=== PATIENT | male | born 1935 | race Caucasian/White ===

== ENCOUNTER 2017-08-05 09:34 | Outpatient (CLI) | payer MEDICARE, BC ==
--- NOTE | 2017-08-05 13:04 | RAD ---
PA AND LATERAL CHEST X-RAY: 08/05/2017 HISTORY: Dyspnea. COMPARISON: 10/23/2016 FINDINGS: Again noted is elevation of the left hemidiaphragm with atelectasis at the left lung base. There al so appears to be atelectasis at the right lung base. The cardiac silhouette is stable in size but i s partially obscured to an elevated left hemidiaphragm and shallow depth of inspiration. Vascular c alcification is again seen in the thoracic aorta. Midline sternotomy wires are again seen. Left gl enohumeral prosthesis is again seen. No other interval change. IMPRESSION: Overall stable chest with bibasilar atelectasis and elevation of left hemidiaphragm. POS: [facility]
== END 2017-08-05 09:35 | disposition home or self-care (01) ==
LOC: RAD 09:34
PROVIDERS: ATTEND Internal Medicine Critical Care Medicine
DX: R06.00 Dyspnea, unspecified (principal); J98.11 Atelectasis
CPT/HCPCS: 71020

== ENCOUNTER 2017-11-08 10:03 | Inpatient (IN) | payer MEDICARE, BC ==
[2017-11-08 11:22] LABS: #Basophils 0.1 thou/uL (0.0-0.2); #Eosinphils 0.1 thou/uL (0.0-0.7); #Lymphocytes 0.8 thou/uL (1.20-3.40); #Monocytes 0.5 thou/uL (0.11-0.59); #Neutrophils 8.8 thou/uL (1.40-6.50); %Basophils 1.3 % (0.0-1.0); %Eosinophils 1.3 % (0.0-10.0); %Monocytes 4.8 % (0.0-10.0); %Neutrophils 84.6 % (42.0-75.0); Hemoglobin 15.3 g/dL (14.0-18.0); Mean Corpuscular HGB CONC 31.3 g/dL (32.0-36.0); Mean Corpuscular Hemoglobin 30.5 pg (27.0-31.0); Mean Corpuscular Volume 97.6 fl (80.0-94.0); Mean Platelet Volume 8.5 fL (7.4-10.4); Platelet Count 147 thou/uL (130-400); RBC Distribution Width 14.4 % (11.5-14.5); Red Blood Cell (RBC) Count 5.02 mill/uL (4.70-6.10); White Blood Cell (WBC) Count 10.4 thou/uL (4.8-10.8)
--- NOTE | 2017-11-08 11:22 | RAD ---
CHEST TWO VIEWS: History: Dyspnea. Comparison: 08-05-17 FINDINGS: Cardiomediastinal silhouette is partially obscured by patchy bibasilar infiltrates that are similar i n appearance to the prior exam. Left hemidiaphragm remains elevated. Pulmonary vasculature remain eng orged. Mediastinum is midline with aortic calcification and post-operative changes. No lobar consolid ation or pneumothorax are visible. Left shoulder prosthesis and degenerative changes of the right mary grace ulder are apparent. IMPRESSION: Pulmonary vascular congestion, bibasilar atelectasis, and other findings are stable. POS: [facility]
[2017-11-08 11:31] LABS: Anion Gap 14 mmol/L (10-20); BUN (Urea Nitrogen) 25 mg/dL (8.4-25.7); CRP (Inflammatory) 9.39 mg/dL (= or < 0.5); Calc. Creatinine Clearance 0 mL/min (70-130); Calcium 9.8 mg/dL (7.8-10.44); Carbon Dioxide 31 mmol/L (23-31); Chloride 101 mmol/L (98-107); Estimated GFR-MDRD 59; Glucose 133 mg/dL (83-110); Potassium 3.8 mmol/L (3.5-5.1); Sodium 142 mmol/L (136-145); Uric Acid 3.9 mg/dL (3.5-7.2)
[2017-11-08 11:35] LABS: CKMB 2.2 ng/mL (0-6.6); Troponin I 0.052 ng/mL (< 0.028)
--- NOTE | 2017-11-08 12:13 | RAD ---
RIGHT HAND 3 VIEWS: Date: 11/08/17 HISTORY: Right hand pain. FINDINGS: There is lateral subluxation at the first carpometacarpal joint with complete loss of joint space, pr ominent osteophytosis, and subchondral sclerosis. Heterotopic ossification is also present with destr uction of the articular surface of the trapezium. At the distal interphalangeal joint of the index finger, chronic appearing cortical destruction is ap parent with abundant osteophytosis and moderate degree of heterotopic ossification. There is complete loss of joint space and subchondral sclerosis. Less severe osteoarthritic changes involve the other distal interphalangeal joints. Old ununited ossi fic avulsion of the ulnar styloid is apparent. There is calcification in the arterial structures. Sma ll ossification just lateral to the base of the proximal phalanx index finger may represent an old os sific avulsion of a tendon. IMPRESSION: 1. 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 2. Atherosclerosis. POS: [facility]
--- NOTE | 2017-11-08 12:28 | RAD ---
4 VIEWS RIGHT ELBOW: Date: 11/08/17 HISTORY: Right elbow pain which began 5 days ago. COMPARISON: None available. FINDINGS: There are cortical osseous densities seen adjacent to the lateral humeral condyle, as well as adjacen t to the radial head, likely related to prior injury. There are degenerative changes seen at the elbo w with narrowing of the joint space. No obvious fracture is appreciated and there is no dislocation i dentified. There is subcutaneous soft tissue swelling about the elbow, greater medially and posterior ly. There is question of elevation of the posterior fat pad which may represent a small joint effusio n. The anterior fat pad is not elevated. Vascular calcifications are seen in the volar aspect of the forearm. IMPRESSION: 1. Prominent degenerative changes involving the elbow with suggestion of prior injury at the lateral aspect of the elbow. However, no acute fracture or dislocation is seen. 2. Subcutaneous soft tissue swelling right elbow predominantly medially and posteriorly. There is qu estion of a small joint effusion as well. POS: [facility]
[2017-11-08] MEDS ORDERED: Nitroglycerin 2% Ointment 1 INCH/1 GM Packet ONE (13:07)
[2017-11-08 15:04] LABS: Troponin I 0.061 ng/mL (< 0.028)
[2017-11-08] MEDS ORDERED: Calcium Carbonate 500 MG ChewTAB PO PRN (15:09)
[2017-11-08] MEDS ORDERED: HYDROcodone/Acetaminophen 5/325 mg Tablet PO PRN (15:09)
[2017-11-08] MEDS ORDERED: Acetaminophen 325 MG TAB PO PRN (15:09)
[2017-11-08 15:49] VITALS: BMI 29.7
[2017-11-08] MEDS ORDERED: Enoxaparin Sodium 40 MG/0.4 ML SYRINGE SC SCH (16:00)
[2017-11-08] MEDS ORDERED: Metoprolol Tartrate 50 MG TAB PO SCH (18:15)
[2017-11-08] MEDS ORDERED: Colchicine 0.3 MG TAB PO SCH (18:30)
[2017-11-08] MEDS: Atorvastatin Calcium 10 MG TAB PO SCH (20:37)
[2017-11-08] MEDS: Colchicine 0.6 MG TAB PO SCH (20:37)
[2017-11-08] MEDS: Naproxen 500 MG TAB PO SCH (20:38)
[2017-11-08] MEDS: Docusate 100 MG CAP PO SCH (20:38)
[2017-11-08] MEDS: Famotidine/PF 20 mg/2ml Vial SLOW IVP SCH (20:40)
[2017-11-08 23:31] LABS: CKMB 1.6 ng/mL (0-6.6)
[2017-11-09 05:25] LABS: #Eosinphils 0.3 thou/uL (0.0-0.7); #Lymphocytes 1.2 thou/uL (1.20-3.40); #Monocytes 0.7 thou/uL (0.11-0.59); #Neutrophils 4.8 thou/uL (1.40-6.50); %Basophils 0.7 % (0.0-1.0); %Eosinophils 3.7 % (0.0-10.0); %Lymphocytes 17.3 % (21.0-51.0); %Monocytes 10.6 % (0.0-10.0); %Neutrophils 67.8 % (42.0-75.0); Mean Corpuscular Hemoglobin 30.9 pg (27.0-31.0); Mean Corpuscular Volume 99.7 fl (80.0-94.0); Platelet Count 146 thou/uL (130-400); RBC Distribution Width 13.9 % (11.5-14.5); Red Blood Cell (RBC) Count 4.52 mill/uL (4.70-6.10)
[2017-11-09 05:46] LABS: Anion Gap 12 mmol/L (10-20); BUN (Urea Nitrogen) 27 mg/dL (8.4-25.7); Calc. Creatinine Clearance 61 mL/min (70-130); Carbon Dioxide 27 mmol/L (23-31); Chloride 104 mmol/L (98-107); Estimated GFR-MDRD 64; Glucose 93 mg/dL (83-110); Magnesium 1.9 mg/dL (1.6-2.6); Potassium 3.9 mmol/L (3.5-5.1); Sodium 139 mmol/L (136-145)
[2017-11-09] MEDS: Levothyroxine Sodium 112 MCG TAB PO SCH (06:25)
[2017-11-09 07:47] LABS: CKMB 1.7 ng/mL (0-6.6); Troponin I 0.056 ng/mL (< 0.028)
[2017-11-09] MEDS: Colchicine 0.6 MG TAB PO SCH ×2 (08:41→20:48)
[2017-11-09] MEDS: Naproxen 500 MG TAB PO SCH ×2 (08:41→20:48)
[2017-11-09] MEDS: Hydrochlorothiazide 25 MG TAB PO SCH (08:42)
[2017-11-09] MEDS: Losartan 25 MG TAB PO SCH (08:42)
[2017-11-09] MEDS: Famotidine/PF 20 mg/2ml Vial SLOW IVP SCH ×2 (08:43→20:49)
[2017-11-09] MEDS: Metoprolol Tartrate 25 MG TAB PO SCH ×2 (08:43→20:48)
[2017-11-09] MEDS: Docusate 100 MG CAP PO SCH ×2 (08:43→20:48)
[2017-11-09] MEDS ORDERED: Allopurinol 300 MG TAB PO SCH (09:00)
[2017-11-09] MEDS ORDERED: Enoxaparin Sodium 40 MG/0.4 ML SYRINGE SC SCH (09:00)
--- NOTE | 2017-11-09 10:37 | CT ---
CT ARTERIOGRAM CHEST WITH IV CONTRAST AND 3D MIP IMAGING: HISTORY: Chest pain. Dyspnea. FINDINGS: There is good contrast opacification of the pulmonary arteries. Contrast has not yet reached the aor ta at the time of imaging. There is calcification in the arterial structures. Atelectasis is presen t at each lung base. There are postoperative changes in the mediastinum. IMPRESSION: 1. No CT evidence of pulmonary embolus. 2. Bibasilar atelectasis with postoperative changes of the mediastinum. 3. Atherosclerosis. Findings were called to Dr. Bae at 1008 hours. CODE CR POS: [facility]
[2017-11-09] MEDS ORDERED: Dronedarone HCl 400 MG TAB PO SCH (12:15)
--- NOTE | 2017-11-09 12:20 | PDOC.PN ---
- Subjective Encounter Start Date: 11/09/17 Encounter Start Time: 09:30 Afebrile, breathing is beter, much less pain to right elbow and hand. no n/V/D/C, no CP, SOB much improved review of telemtry revealed underlying atrial flutter with variable block, i have asked Dr Myers to see. Case discussed face to face with Dr Bishop, will get CT angio to r/o PE given new atrial arrhythmia 10 point ROS performed and neg for all systems except as per HPI - Objective MAR Reviewed: Yes Vital Signs & Weight: Vital Signs (12 hours) Temp Pulse Resp BP BP Pulse Ox 11/09/17 10:44 97.7 F 83 16 117/68 94 L 11/09/17 08:00 97.0 F L 94 20 11/09/17 07:45 97.0 F L 94 20 124/81 97 11/09/17 04:21 97.7 F 81 18 117/84 93 L Weight Weight 190 lb I&O: 11/08/17 11/09/17 11/10/17 06:59 06:59 06:59 Intake Total 1220 240 Balance 1220 240 Result Diagrams: 11/09/17 04:37 11/09/17 04:37 Radiology Reviewed by me: Yes EKG Reviewed by me: Yes Phys Exam - Physical Examination Constitutional: NAD HEENT: PERRLA, moist MMs, sclera anicteric, oral pharynx no lesions Neck: no nodes, no JVD, supple, full ROM Respiratory: no wheezing, no rhonchi, clear to auscultation bilateral bibasilar rales stable Cardiovascular: no significant murmur, no rub irregularly irregular, slightly tachy Gastrointestinal: soft, non-tender, positive bowel sounds Musculoskeletal: no edema, pulses present, edema present Neurological: non-focal, normal sensation, moves all 4 limbs Lymphatic: no nodes Psychiatric: normal affect, A&O x 3 Skin: no rash, normal turgor, cap refill <2 seconds Deviation from normal: redness and swelling to right elbow and hand much better Dx/Plan (1) Atrial flutter by electrocardiogram Code(s): I48.92 - UNSPECIFIED ATRIAL FLUTTER Status: Acute (2) Gout attack Code(s): M10.9 - GOUT, UNSPECIFIED Status: Acute Qualifiers: Gout site: elbow Gout etiology: idiopathic Laterality: right Qualified Code(s): M10.021 - Idiopathic gout, right elbow (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 transplanted heart: [place] heart Associated angina: without angina Qualified Code(s): I25.10 - Atherosclerotic heart disease of [place] coronary artery without angina pectoris (5) Demand ischemia Code(s): I24.8 - OTHER FORMS OF ACUTE ISCHEMIC HEART DISEASE Status: Acute (6) Hypothyroid Code(s): E03.9 - HYPOTHYROIDISM, UNSPECIFIED Status: Chronic Qualifiers: Hypothyroidism type: acquired Qualified Code(s): E03.9 - Hypothyroidism, unspecified - Plan cont current plan of care, respiratory therapy, out of bed/ambulate * . seen by jesus: bossman now. CAMELIA and [facility] on saturday, change to inpatient
--- NOTE | 2017-11-09 16:53 | CON ---
DATE OF CONSULTATION: 11/09/2017 CARDIOLOGY CONSULTATION REASON FOR CONSULTATION: Atrial fibrillation/atrial flutter. HISTORY OF PRESENT ILLNESS: Mr. Patel is a very pleasant 82-year-old white gentleman, patient of Dr. Meka Thompson who comes to the hospital for arm pain. He has what appears to be gouty flare on h is right arm and is complaining of pain due to this. He also has chronic shortness of breath. He wa s seen in the ER and was found to be in what was thought to be atrial fibrillation and RVR, heart rat e in 100s and 150s. He was started on a Cardizem drip and admitted for this. Cardiology is being co nsulted for this. He does have a history of coronary artery disease and diastolic heart failure, but he has never been diagnosed with atrial fibrillation or atrial flutter. He had a bypass in [address] Thompson did repeat heart catheterization last year in the middle of year for ongoing worsening shor tness of breath and this showed that he had widely patent grafts and alternative causes for the short ness of breath were sought. He has seen Dr. Bishop as well. He tells me that his shortness of breath is unchanged right now. PAST MEDICAL HISTORY: 1. Hyperlipidemia. 2. Hypertension. 3. Coronary artery disease as above. 4. Gout. 5. Diverticulosis. 6. Hypothyroidism. 7. History of acute bronchitis and pneumonias in the past. PAST SURGICAL HISTORY: 1. Colon resection. 2. Bilateral knee replacements. 3. Hernia repair. 4. Appendectomy. 5. CABG x3 in 2004. 6. Left shoulder surgery in 2009. FAMILY HISTORY: Brother had PR and bypass in early age. SOCIAL HISTORY: Used to chew tobacco. No alcohol or drugs. REVIEW OF SYSTEMS: A 12-point review of systems was done and is all negative unless stated in the his tory of present illness. OUTPATIENT MEDICATIONS: Include, 1. Aleve p.r.n. 2. Pravastatin 80 mg a day. 3. Levothyroxine 112 mcg a day. 4. Allopurinol 300 mg daily. 5. Vitamin D3. 6. Aspirin 81 daily. 7. Metoprolol succinate 50 mg daily. 8. Hydrochlorothiazide 12.5 mg daily. 9. Cozaar 50 mg twice a day. ALLERGIES: No known drug allergies. PHYSICAL EXAMINATION: VITAL SIGNS: Temperature 97.7, pulse 83, respiratory rate 16, satting 94% on room air, blood pressur e 117/68. GENERAL: Awake, alert, oriented x3, in no distress. HEENT: Normocephalic, atraumatic. NECK: Supple. LUNGS: Clear. CARDIOVASCULAR: Irregularly irregular. Heart rate in 90s-110s. Grade 2/6 systolic murmur in the ri ght upper sternal border. ABDOMEN: Soft and positive bowel sounds. EXTREMITIES: Trace edema. SKIN: Warm and dry. LABORATORY DATA AND IMAGING DATA: Laboratory work was reviewed. CMP is unremarkable except for gluc ose of 133. Troponin has been in indeterminate range at 0.05, 0.06, 0.08, and 0.05. BNP was 170. C oags and D-dimer is little bit high and CBC was unremarkable. CTA of the chest to rule out PE was ne gative for pulmonary embolus, bibasilar atelectases, postoperative mediastinal changes and atheroscle rosis. Heart catheterization done in November of last year showed patent vein to first diagonal, patent vein to the first OM, and a patent FLANNERY to the LAD. ASSESSMENT AND PLAN: Atrial flutter: Looking at the tracing, this is more consistent with atrial fl utter with variable block now. We will plan on doing a CAMELIA cardioversion on Saturday. We will start M ultaq today and full anticoagulation with Eliquis at [address] Thompson will follow up on Saturday. She may want to consult EP and possibly just get him set up for an ablation. We will leave this up to her at that point. Thank you for letting us to participate in the care of your patient. We will follow.
[2017-11-09] MEDS ORDERED: ISOVUE-370 76%-LOCM 1 ML ONE (16:54)
--- NOTE | 2017-11-09 16:55 | PRG ---
DATE OF SERVICE: 11/09/2017 SUBJECTIVE: Mr. Patel presented yesterday with complaints of elbow pain. He subsequently was admitt ed. His shortness of breath is about the same. Says his arm and elbow been bothering him for 3 days . Says he is 100% better today. OBJECTIVE: VITAL SIGNS: He initially had a resting tachycardia. It turns out that this may be atrial flutter. He had a CT angiogram today that showed no thromboembolic disease, no change from his last CT. I am following him for chronic dyspnea. He has bilateral elevated hemidiaphragms, he has a mild incr ease in interstitial markings with a decreased effusion and a restrictive pattern on PFTs. This has not been rapidly progressive. Deconditioning plays a significant role in his dyspnea. In my opinion , I do not feel he has neuromuscular disease. LUNGS: Still remarkable for fine crackles at his bases. CARDIOVASCULAR: Regular rhythm. ABDOMEN: Soft. LABORATORY DATA: White count 7, hemoglobin 14 and platelets 146. Sodium 139, potassium 3.9, chloride 104, bicarb 27, BUN 27 and creatinine 1.1. IMPRESSION AND PLAN: 1. Multifactorial dyspnea, stable. 2. Elbow swelling with pain ? gout, clinically better. It is unclear to me whether or not he receiv ed steroids in the [place] ER. I will be happy to follow him along while he is in the hospital.
--- NOTE | 2017-11-09 18:07 | HP ---
DATE OF ADMISSION: 11/08/2017 TIME OF SERVICE: 1700 hours. PRIMARY CARE PHYSICIAN: Tutu Hdz MD PRIMARY BLUING OVEN TENDER: Meka Thompson MD PRIMARY GAMING MANAGER: Jatinder Bishop MD CONSULTING BLUING OVEN TENDER: Colt Myers MD CHIEF COMPLAINT: Right arm pain. HISTORY OF PRESENT ILLNESS: Mr. Patel is a pleasant 82-year-old white male with multiple medical pro blems, who presented to an outside emergency department, [facility] ER, on the day of admi ssion with complaints of arm pain. He has been having arm pain initially in the right elbow associated with some redness and inflammatio n that seemed to migrate to the right wrist and has had symptoms for the last 5 days. It was at its worst about 24-36 hours in and had slowly subsided since then. He denies any trauma or injury to the area. 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 In the emergency department, he was found to have some inflammation and some mild swelling on radiogr aphs. Evaluation there also showed him to be tachycardic with a heart rate in the 100-128 range. EK G was read as atrial fibrillation per the ER physician. Labs showed the troponin minimally elevated at 0.05, remainder of his labs looked fairly normal and w e were subsequently called for admission for workup for chest pain. The patient had no real chest pain. He had no shortness of breath. No nausea, vomiting, or diaphore sis. No sweats. The patient was transferred to our hospital. I saw him on arrival. At that point, he was feeling mu ch better, but still remains somewhat tachycardic. PAST MEDICAL HISTORY: 1. Gout, usually in the feet. 2. Hypothyroidism. 3. History of renal stones. 4. Diverticulosis. 5. Coronary artery disease. 6. Hyperlipidemia, primary cholesterol. 7. Hypertension. 8. Diaphragmatic weakness. 9. Chronic shortness of breath with multiple workups by Dr. Thompson and Dr. Bishop. PAST SURGICAL HISTORY: 1. Colon resection for colon cancer. 2. Appendectomy. 3. Hernia repair. 4. Bilateral knee replacement. 5. Left shoulder surgery. 6. CABG x3 vessels, 2004. 7. Stress test in 11/2016, negative per Dr. Thompson' note. 8. Percutaneous transluminal coronary angiography in 11/2016 that showed all 3 bypass grafts patent with minimal disease and distal vessels to be minimally diseased as well. HOME MEDICATIONS: 1. Aspirin 81 mg daily. 2. Levothyroxine 112 mcg daily. 3. Aleve as needed. 4. Allopurinol 300 mg daily. 5. HCTZ 12.5 mg daily. 6. Losartan 50 mg daily. 7. Metoprolol succinate 50 mg p.o. daily. 8. Protonix 40 mg p.o. at bedtime. 9. Vitamin D3, 2000 units daily. 10. Albuterol MDI as needed. ALLERGIES: NKDA. FAMILY HISTORY: Negative for clotting or bleeding disorder. No immune dysfunction. No history of b lood tumors. SOCIAL HISTORY: Negative for habits x3. He is and accompanies him. Son is present and grandson works in cardiopulmonary imaging here at [place]. REVIEW OF SYSTEMS: 10-point review of systems was performed, negative for all other systems except a s noted per HPI. PHYSICAL EXAMINATION: VITAL SIGNS: Temperature current 97.7, pulse 103, blood pressure is 133/71, respiratory rate 18, sat ting 93% on room air. GENERAL: He is awake. He is alert. He is oriented x3. He is a well-developed, well-nourished, whi te male who appears to be in no distress. HEENT: Normocephalic, atraumatic. Pupils equal, round, and reactive to light bilaterally. Mucous m embranes are moist. There are no visible lesions. No thrush. NECK: Supple. There is no lymphadenopathy, no JVD, no thyromegaly. He has normal carotid upstrokes . I do not appreciate bruits. LUNGS: Clear anteriorly. Posteriorly, he has adequate air movement. He has bibasilar crackles that do not clear with deep inspiration. He has breath sounds only about usp down to his back. Ther e are no E to A changes, no dullness. CARDIOVASCULAR: He is tachycardic. He sounds regular most of the time with occasional irregular cosmo t. He has a faint 2/6 systolic ejection murmur, best heard over the right upper sternal border. It did not radiate to the apex or the carotids. ABDOMEN: Soft. It is nontender and nondistended. He has no masses, no organomegaly. He has no manuela ound, rigidity or guarding with good bowel sounds. EXTREMITIES: No cyanosis, no clubbing with trace pedal edema. He has thready dorsalis pedis and pos terior tibial pulses. He does have redness and inflammation around the olecranon bursa area and in t he right wrist at the carpometacarpal joint, mostly in the hypothenar aspect. There is slight rednes s, heat, and pain with light touch and movement. SKIN: Otherwise, warm, moist, and well perfused. He has no other rashes or lesions. NEUROLOGIC: Cranial nerves II-XII are grossly intact. He has 5/5 strength. He has no focal deficit s. Normal speech pattern. MUSCULOSKELETAL: Normal to inspection. There is no joint inflammation and no palpable effusions. LABORATORY DATA: Sodium 142, potassium 3.8, chloride 101, bicarb 31, BUN 25, creatinine 1.17, glucos e 133, calcium 9.8. Liver function is normal. CBC showed a white count of 10.4, hemoglobin 15.3, hematocrit 49, platelet count 147,000. ESR of 56. CRP of 9.39. Uric acid level was 3.9. CK-MB was 2.2. Troponin I is 0.052. Fasting lipid profile done in the [facility] department was normal and BNP was minimally elevated at 170.4. No chest imaging. ASSESSMENT AND PLAN: 1. 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 We will stop his allopurinol that c an exacerbate. We will start him on colchicine 0.6 b.i.d. for the next several days. Uric acid leve l was normal, but symptoms right now are improved from what they were few days ago. It may be on [employer] swing anyways. 2. Atrial flutter. On view of his EKG from the emergency department, he had a very irregular rhythm at 130. It is slightly slower than I would expect for an atrial flutter with a 2:1 block; however, we will watch him on the monitor overnight and re-evaluate. We will get serial cardiac biomarkers an d start him on metoprolol tartrate 50 mg b.i.d. and hold Toprol-XL assuming his rate is better contro lled. 3. Hypothyroidism, on levothyroxine. We will continue. TSH is elevated. 4. History of renal stones. No current symptoms. 5. History of diverticulosis, no current symptoms. 6. History of coronary artery disease. The patient denies any chest pain. We will again obtain ser ial cardiac biomarkers and may adjust based on the results. 7. Hyperlipidemia, primary cholesterol. 8. Hypertension, on losartan/HCTZ and metoprolol succinate. We will continue his losartan/HCTZ, and change him to metoprolol tartrate for right now. 9. Gastroesophageal reflux disease, on Protonix. We will continue. 10. History of occasional reactive airway disease, on albuterol. We will use DuoNeb as needed. We will ask Cardiology to evaluate in the morning. If the troponins trend up or if any arrhythmias n oted, we will notify Dr. Thompson and Dr. Bishop of admission.
[2017-11-09] MEDS: Dronedarone HCl 400 MG TAB PO SCH (18:42)
[2017-11-09] MEDS ORDERED: Sodium Chloride 0.9% 10 ML ONE (20:18)
[2017-11-09] MEDS: Apixaban 5 MG TAB PO SCH (20:48)
[2017-11-09] MEDS: Atorvastatin Calcium 10 MG TAB PO SCH (20:48)
[2017-11-09 23:00] LABS: Hemoglobin 13.5 g/dL (14.0-18.0); Platelet Count 151 thou/uL (130-400)
[2017-11-10] MEDS: Levothyroxine Sodium 112 MCG TAB PO SCH (05:35)
[2017-11-10 05:46] LABS: Platelet Count 142 thou/uL (130-400)
[2017-11-10 05:47] LABS: #Basophils 0.1 thou/uL (0.0-0.2); #Eosinphils 0.3 thou/uL (0.0-0.7); #Lymphocytes 0.9 thou/uL (1.20-3.40); #Monocytes 0.7 thou/uL (0.11-0.59); #Neutrophils 3.9 thou/uL (1.40-6.50); %Basophils 0.9 % (0.0-1.0); %Eosinophils 4.5 % (0.0-10.0); %Lymphocytes 15.8 % (21.0-51.0); %Monocytes 11.9 % (0.0-10.0); %Neutrophils 66.9 % (42.0-75.0); Hemoglobin 13.7 g/dL (14.0-18.0); Mean Corpuscular HGB CONC 30.9 g/dL (32.0-36.0); Mean Corpuscular Hemoglobin 30.8 pg (27.0-31.0); Mean Corpuscular Volume 99.7 fl (80.0-94.0); Mean Platelet Volume 8.7 fL (7.4-10.4); Platelet Count 137 thou/uL (130-400); RBC Distribution Width 13.8 % (11.5-14.5); Red Blood Cell (RBC) Count 4.47 mill/uL (4.70-6.10); White Blood Cell (WBC) Count 5.9 thou/uL (4.8-10.8)
[2017-11-10 05:52] LABS: Hemoglobin 13.8 g/dL (14.0-18.0)
[2017-11-10 05:55] LABS: Anion Gap 14 mmol/L (10-20); BUN (Urea Nitrogen) 31 mg/dL (8.4-25.7); Calc. Creatinine Clearance 56 mL/min (70-130); Calcium 8.6 mg/dL (7.8-10.44); Carbon Dioxide 24 mmol/L (23-31); Chloride 107 mmol/L (98-107); Estimated GFR-MDRD 58; Glucose 103 mg/dL (83-110); Sodium 141 mmol/L (136-145)
[2017-11-10] MEDS: Hydrochlorothiazide 25 MG TAB PO SCH (08:43)
[2017-11-10] MEDS: Naproxen 500 MG TAB PO SCH ×2 (08:43→21:19)
[2017-11-10] MEDS: Losartan 25 MG TAB PO SCH (08:43)
[2017-11-10] MEDS: Metoprolol Tartrate 25 MG TAB PO SCH ×2 (08:44→21:19)
[2017-11-10] MEDS: Dronedarone HCl 400 MG TAB PO SCH ×2 (08:44→16:46)
[2017-11-10] MEDS: Apixaban 5 MG TAB PO SCH ×2 (08:44→21:19)
[2017-11-10] MEDS: Colchicine 0.6 MG TAB PO SCH ×2 (08:44→21:23)
[2017-11-10] MEDS: Docusate 100 MG CAP PO SCH ×2 (08:44→21:19)
[2017-11-10] MEDS: Famotidine/PF 20 mg/2ml Vial SLOW IVP SCH (08:50)
--- NOTE | 2017-11-10 11:11 | PDOC.PN ---
- Subjective Encounter Start Date: 11/10/17 Encounter Start Time: 09:30 Pt heart rate down to normal. breathing is improved. No further tachycardia. Still in aflutter with variable block. No CP or SOB above basline, no n/V/D/C, no F/C, no cough 10 point ROS performed and neg for all systems except as per HPI - Objective MAR Reviewed: Yes Vital Signs & Weight: Vital Signs (12 hours) Temp Pulse Resp BP Pulse Ox 11/10/17 08:56 98.4 F 75 18 129/60 98 11/10/17 08:00 98.3 F 75 15 98 11/10/17 04:00 98.3 F 75 15 103/51 L 97 Weight Weight 190 lb 11.198 oz I&O: 11/09/17 11/10/17 11/11/17 06:59 06:59 06:59 Intake Total 492 240 Output Total 350 Balance 142 240 Result Diagrams: 11/10/17 05:35 11/10/17 05:35 EKG Reviewed by me: Yes Phys Exam - Physical Examination Constitutional: NAD HEENT: PERRLA, moist MMs, sclera anicteric, oral pharynx no lesions Neck: no nodes, no JVD, supple, full ROM Respiratory: no wheezing, no rales, no rhonchi, clear to auscultation bilateral Cardiovascular: no significant murmur, irregular Gastrointestinal: soft, non-tender, no distention, positive bowel sounds Musculoskeletal: no edema, pulses present Neurological: non-focal, normal sensation, moves all 4 limbs Lymphatic: no nodes Psychiatric: normal affect, A&O x 3 Skin: no rash, normal turgor, cap refill <2 seconds Dx/Plan (1) Atrial flutter by electrocardiogram Code(s): I48.92 - UNSPECIFIED ATRIAL FLUTTER Status: Acute Comment: kaiden Oscar. cardioversion possible tomorrow, Dr Thompson to assume care (2) Gout attack Code(s): M10.9 - GOUT, UNSPECIFIED Status: Acute Qualifiers: Gout site: elbow Gout etiology: idiopathic Laterality: right Qualified Code(s): M10.021 - Idiopathic gout, right elbow Comment: much better. 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 transplanted heart: [place] heart Associated angina: without angina Qualified Code(s): I25.10 - Atherosclerotic heart disease of [place] coronary artery without angina pectoris (5) Demand ischemia Code(s): I24.8 - OTHER FORMS OF ACUTE ISCHEMIC HEART DISEASE Status: Acute (6) Hypothyroid Code(s): E03.9 - HYPOTHYROIDISM, UNSPECIFIED Status: Chronic Qualifiers: Hypothyroidism type: acquired Qualified Code(s): E03.9 - Hypothyroidism, unspecified - Plan * .
--- NOTE | 2017-11-10 18:53 | PDOC.CTH ---
Cardiology Progress Note - Subjective He has noticed improvement in his SOB with rate control only. - Objective Vital Signs Temp Pulse Resp BP Pulse Ox 11/10/17 16:51 98.0 F 68 17 130/72 94 L 11/10/17 12:02 97.6 F 65 18 127/70 99 11/10/17 08:56 98.4 F 75 18 129/60 98 11/10/17 08:00 98.3 F 75 15 98 Weight 190 lb 11.198 oz 11/09/17 11/10/17 11/11/17 06:59 06:59 06:59 Intake Total 492 1080 Output Total 350 200 Balance 142 880 - Physical Examination General/Neuro: alert & oriented x3, NAD Neck: no JVD present Lungs: unlabored respirations Heart: other: (Irreg) Abdomen: NT/ND Extremities: other: (no edema) - Telemetry Telemetry Rhythm: Aflutter HR 80's. - Labs Result Diagrams: 11/10/17 05:35 11/10/17 05:35 Troponin/CKMB CK-MB (CK-2) 1.7 ng/mL (0-6.6) 11/09/17 06:55 Troponin I 0.056 ng/mL (< 0.028) H 11/09/17 06:55 - Assessment/Plan 1. Atrial flutter with variable block, rate controlled. 2. Chronic SOB. 3. CAD PLAN: - EP consultation tomorrow for possible ablation.
[2017-11-10] MEDS ORDERED: Sodium Chloride 0.9% 10 ML ONE (19:47)
--- NOTE | 2017-11-10 20:08 | PRG ---
DATE OF SERVICE: 11/10/2017 SUBJECTIVE: Mr. Patel has no complaints. OBJECTIVE: VITAL SIGNS: Heart rate is 68, afebrile, respiratory rate 17, oximetry is 94 on 2 liters, blood pres sure 132/72. LUNGS: Remarkable for chronic fine crackles at both bases. HEART: Regular rhythm. ABDOMEN: Soft. LABORATORY DATA: Hemoglobin is 13.8, platelets 142. Electrolytes, sodium 141, potassium 4, chloride 107, bicarbonate 24, BUN 31, creatinine 1.2. IMPRESSION: Dyspnea secondary to multiple factors. He said he ambulated today up and down the cabral, had less dyspnea in the current rhythm. I would like to believe that maybe he has been in and out o f these atrial arrhythmias leading to dyspnea on exertion. Hopefully, it is that simple, although it is unlikely to be that simple. There were no pulmonary issues at this time. He is tentatively to be evaluated by electrophysiologis t tomorrow.
[2017-11-10] MEDS: Atorvastatin Calcium 10 MG TAB PO SCH (21:19)
[2017-11-10] MEDS: Famotidine 20 MG TAB PO SCH (21:19)
[2017-11-11] MEDS ORDERED: Sodium Chloride 0.9% 10 ML ONE ×2 (04:01→14:15)
[2017-11-11] MEDS: Levothyroxine Sodium 112 MCG TAB PO SCH (05:59)
[2017-11-11] MEDS: Hydrochlorothiazide 25 MG TAB PO SCH (10:04)
[2017-11-11] MEDS: Losartan 25 MG TAB PO SCH (10:04)
[2017-11-11] MEDS: Naproxen 500 MG TAB PO SCH ×2 (10:05→20:23)
[2017-11-11] MEDS: Colchicine 0.6 MG TAB PO SCH ×2 (10:05→20:22)
[2017-11-11] MEDS: Metoprolol Tartrate 25 MG TAB PO SCH (10:05)
[2017-11-11] MEDS: Docusate 100 MG CAP PO SCH ×2 (10:05→20:24)
[2017-11-11] MEDS: Apixaban 5 MG TAB PO SCH ×2 (10:05→20:22)
[2017-11-11] MEDS: Famotidine 20 MG TAB PO SCH ×2 (10:06→20:23)
[2017-11-11] MEDS ORDERED: PROPOFOL 20 ML ONE (11:50)
[2017-11-11] MEDS ORDERED: PHENYLEPHRINE-NS 100 MCG/ML 10 ML SYRINGE ONE ×3 (12:01→15:41)
[2017-11-11] MEDS ORDERED: Phenylephrine 10 MG/NS 250 ML 250 ML ONE (12:30)
[2017-11-11] MEDS ORDERED: Norepinephrine 4 MG/4 ML VIAL ONE (12:38)
[2017-11-11] MEDS ORDERED: DOPamine 400 MG/D5W 250 ML 250 ML ONE (13:02)
[2017-11-11] MEDS ORDERED: Propofol 500 MG/50 ML VIAL ONE (13:25)
--- NOTE | 2017-11-11 13:50 | CON ---
DATE OF CONSULTATION: 11/11/2017 ELECTROPHYSIOLOGY CONSULTATION REFERRING PHYSICIAN: Dr. Bae and Dr. Myers. I am seeing Mr. Patel at our [facility] telemetry floor as an electrophysiology information technology consultant. His problems are: 1. Sustained atrial flutter. 2. Severe dyspnea. 3. Gout. 4. History of diverticulosis. 5. History of renal stones. 6. History of coronary artery disease with coronary artery bypass grafting surgery in 2005. A. Stress testing in 2017, negative, Dr. Martins's note. B. Repeat left heart catheterization for ongoing dyspnea noted. 7. Anticoagulation with Eliquis. 8. Coronary artery risk factors. A. Hypertension. B. Hyperlipidemia. 9. Prior history of diaphragmatic weakness. 10. History of hypothyroidism on replacement. ALLERGIES: None. MEDICATIONS: At home include aspirin, levothyroxine, Aleve, allopurinol, HCTZ, losartan, metoprolol succinate, Protonix, vitamin D3, albuterol. SUBJECTIVE: Mr. Patel was originally admitted for joint swelling, but he has also chronic history of dyspnea, which has been worked up in the past. He is very severely dyspneic now, more than usual. He has difficulty to ambulate around the house NYHA III functional status. He has no angina, though he denies chest pains. No fever, chills or cough. He has not passed out. He came to the ER with shoulder aches, which felt to be due to gouty arthritis and was started on colchicine and symptoms are improving now, but on the other hand , he was found to be atrial flutter and hence I was requested to evaluate. Currently, he is doing fair. His rate is controlled. No fever, chills or cough. No stroke-like symptoms. REVIEW OF SYSTEMS: Otherwise unremarkable. PAST MEDICAL HISTORY: As above. SOCIAL HISTORY: Patient denies smoking, ETOH or drug abuse. FAMILY HISTORY: Noncontributory. PHYSICAL EXAMINATION: VITAL SIGNS: The blood pressure is 130/82, heart rate 79, respirations 16, temperature 97.9 degrees Fahrenheit. GENERAL: Reveals an alert and oriented man, in no apparent distress. NECK: Supple. Jugular veins are not distended. CHEST: Coarse without crackles. CARDIAC: Heart sounds are irregularly irregular. S1 and S2 variable. No murmur or gallop. ABDOMEN: Benign. Bowel sounds positive. EXTREMITIES: Lower extremities without edema, clubbing or cyanosis. DATABASE: The telemetry strips and EKGs reviewed. EKG revealing an atrial flutter with 2:1 AV conduction. Atrial flutter appears to be typical in morphology based on subsequent rhythm strips on 11/08/2017. The atrial flutter now better controlled in rates. LABORATORY DATA: White blood cell count is 5.9, hemoglobin 13.7, platelet count is 137. D-dimer is 1.09. Sodium 141, potassium 4, BUN is 31, creatinine is 1.2. Troponin level was 0.06, 0.08 and 0.056 consecutively. ASSESSMENT AND PLAN: Mr. Patel is an 82-year-old man with prior history of chronic, but now worsening dyspnea, coronary artery disease which appears to be stable, who also has gouty arthritis, but also was found to be in sustained typical atrial flutter. They are rapid at times and is more dyspneic than usual with this. We discussed the potential etiology including cavotricuspid isthmus dependent flutter and described the procedure for him for an ablation. He understands the pros and cons about potentially eliminating this flutter circuit. Prior to that, he was not well anticoagulated. For this reason, we will proceed with CAMELIA. The risks, benefits of both CAMELIA and ablation procedure was detailed to the patient. He understands and willing to proceed. We will schedule him for the near date. Thank you again for allowing me to participate in the care of this patient. ROBEL
[2017-11-11] MEDS ORDERED: Acetaminophen 325 MG TAB ONE (14:55)
[2017-11-11] MEDS ORDERED: traMADol HCl 50 MG TAB PO PRN (15:11)
[2017-11-11] MEDS ORDERED: Mag-Al 1200 mg/1200 mg/30 ML UDCUP PO PRN (15:11)
[2017-11-11] MEDS ORDERED: Bisacodyl 5 MG TAB PO PRN (15:11)
[2017-11-11] MEDS ORDERED: Nitroglycerin 0.4 MG TAB (25 Tab Bottle) SL PRN (15:11)
[2017-11-11] MEDS ORDERED: Temazepam 15 MG CAP PO PRN (15:11)
[2017-11-11] MEDS ORDERED: Acetaminophen 325 MG TAB PO PRN (15:11)
[2017-11-11] MEDS ORDERED: diphenhydrAMINE 25 MG CAP PO PRN (15:11)
[2017-11-11] MEDS ORDERED: Silver Sulfadiazine 1% Cream 50 GM JAR TOP PRN (15:11)
[2017-11-11] MEDS ORDERED: Ondansetron HCl/PF 4 MG/2 ML Vial IVP PRN (15:11)
[2017-11-11] MEDS ORDERED: Bisacodyl 10 MG SUPP PR PRN (15:11)
[2017-11-11] MEDS ORDERED: ePHEDrine/0.9% NaCl/PF SYRINGE 50 mg/10 ml ONE (15:40)
[2017-11-11] MEDS ORDERED: PROPOFOL 200 MG/20 ML VIAL ONE (15:41)
--- NOTE | 2017-11-11 18:54 | PDOC.CTH ---
Cardiology Progress Note - Subjective Pt. without complaints. Doing well s/p ablation of atrial flutter. He is somewhat confused but otherwise alert. - Objective Vital Signs Temp Pulse Resp BP BP Pulse Ox 11/11/17 16:00 97.4 F L 63 18 123/81 11/11/17 10:15 97.9 F 79 16 95 11/11/17 08:00 97.9 F 79 16 113/82 Weight 184 lb 1.376 oz 11/10/17 11/11/17 11/12/17 06:59 06:59 06:59 Intake Total 492 1215 720 Output Total 350 400 Balance 142 815 720 - Physical Examination General/Neuro: alert & oriented x3 Lungs: CTA Heart: RRR Abdomen: NT/ND - Telemetry Telemetry Rhythm: NSR - Labs Result Diagrams: 11/10/17 05:35 11/10/17 05:35 Troponin/CKMB CK-MB (CK-2) 1.7 ng/mL (0-6.6) 11/09/17 06:55 Troponin I 0.056 ng/mL (< 0.028) H 11/09/17 06:55 - Assessment/Plan 1. Atrial flutter , now in NSR after ablation earlier today. 2. Chronic SOB. 3. CAD Review of Systems - Review of Systems EENTM: reports: no symptoms reported Respiratory: reports: no symptoms reported Cardiac (ROS): reports: no symptoms reported ABD/GI: reports: no symptoms reported Musculoskeletal: reports: no symptoms reported Neurological: reports: no symptoms reported
[2017-11-11] MEDS: Atorvastatin Calcium 10 MG TAB PO SCH (20:23)
--- NOTE | 2017-11-11 20:25 | CCLSPC ---
DATE OF SERVICE: 11/11/2017 ELECTROPHYSIOLOGY STUDY AND RADIOFREQUENCY ABLATION REPORT REFERRING PHYSICIAN: Colt Myers MD REASON FOR PROCEDURE: Mr. Patel is an 82-year-old man with history of severe dyspnea, presenting with sustained atrial flutter and prior to procedure demonstrating no intracardiac clots, but spontaneous ECHo contrast. The patient has been on apixaban up until yesterday, but not prior to the admission. PROCEDURE IN DETAIL: The patient received sedation by Anesthesia specialist. The right femoral venous area was prepped, draped, and anesthetized with subcutaneous lidocaine, and an 8-Nigerien short sheath x2 was introduced. Through this, a decapolar CS catheter was advanced to the coronary sinuses right ventricular and right atrial area and His bundle area. Pacing, mapping, and recording were performed in all locations. Following that, the ThermoCool SF catheter was advanced to the right atrium and right atrial map was performed. Following that, the pace mapping was performed during atrial flutter demonstrating the post-pacing interval equal the tachycardia cycle length at the cavotricuspid isthmus about 280 milliseconds. Cavotricuspid isthmus ablation was performed which eliminated the atrial flutter. Following that, during CS pacing, further ablation was performed to achieve CTI block with increase in the transisthmus time to 200 milliseconds. The transisthmus block was demonstrated using activation mapping during pacing from the prox CS demonstrating longest transisthmus times by the ablation line and somewhat shorter on lateral wall. Following that, dopamine was administered and the transisthmus time persisted. Baseline EP study was performed demonstrating status no retrograde conduction was seen at 700 milliseconds. The AV Wenckebach cycle length was 420 milliseconds. The baseline cycle length was 813 which increased to 2068 in sinus rhythm, QRS was 90 milliseconds, QT was 363 milliseconds. CONCLUSION: 1. Typical atrial flutter which was cavotricuspid isthmus dependent. 2. Termination of atrial flutter doing ablation and increase of the transisthmus time over 200 milliseconds suggestive of complete cavotricuspid isthmus block. 3. Prolonged sinus node recovery time suggestive of mild to moderate sinus node dysfunction. PLAN: Resume Eliquis hence spontaneous echo contrast, monitor for recurrence of any atrial arrhythmia. POS: CARMEL ROBEL
--- NOTE | 2017-11-11 21:30 | PDOC.PN ---
- Subjective Encounter Start Date: 11/11/17 Encounter Start Time: 19:00 Patient seen and examined. s/p Ablation. No overnight events - Objective MAR Reviewed: Yes Vital Signs & Weight: Vital Signs (12 hours) Temp Pulse Resp BP Pulse Ox 11/11/17 16:00 97.4 F L 63 18 123/81 11/11/17 10:15 97.9 F 79 16 95 Weight Weight 184 lb 1.376 oz I&O: 11/10/17 11/11/17 11/12/17 06:59 06:59 06:59 Intake Total 492 1215 720 Output Total 350 400 Balance 142 815 720 Result Diagrams: 11/13/17 07:29 11/13/17 07:29 EKG Reviewed by me: Yes (Tele SR) Phys Exam - Physical Examination Constitutional: NAD Respiratory: no wheezing, no rhonchi Cardiovascular: RRR, no rub Gastrointestinal: soft, non-tender, positive bowel sounds Musculoskeletal: no edema Neurological: non-focal, moves all 4 limbs Dx/Plan - Plan IMPRESSION: 1. A flutter with RVR s/p Ablation 11/11 2. Resp distress - prob due to #1 3. CAD/Chronic diastolic heart failure 4. HTN 5. HLD/Hypothyroidism/CKD 3/Acute Gout flare PLAN: * Cardio/EP/Pulm following * Cont current meds as below * Check Cr in AM * Cont to monitor * DC planning Review of Systems - Review of Systems Respiratory: negative: Cough, Dry, Shortness of Breath, Hemoptysis, SOB with Excertion, Pleuritic Pain, Sputum, Wheezing Cardiovascular: negative: chest pain, palpitations, orthopnea, paroxysmal nocturnal dyspnea, edema, light headedness - Medications/Allergies Allergies/Adverse Reactions: Allergies Allergy/AdvReac Type Severity Reaction Status Date / Time No Known Allergies Allergy Verified 11/08/17 15:23 Medications: Current Medications Acetaminophen (Tylenol) 650 mg PO Q4H PRN PRN Reason: Mild Pain 1-3 Hydrocodone Bitart/Acetaminophen ([place] 5/325) 1 tab PO Q4H PRN PRN Reason: Moderate Pain (4-6) Al Hydroxide/Mg Hydroxide (Maalox) 15 ml PO Q4H PRN PRN Reason: Heartburn or Indigestion Apixaban (Eliquis) 5 mg PO BID LE Last Admin: 11/11/17 20:22 Dose: 5 mg Aspirin (Aspirin Chewable) 81 mg PO DAILY [facility] Last Admin: 11/11/17 10:06 Dose: 81 mg Atorvastatin Calcium (Lipitor) 10 mg PO HS [facility] Last Admin: 11/11/17 20:23 Dose: 10 mg Bisacodyl (Dulcolax) 5 mg PO DAILYPRN PRN PRN Reason: CONSTIAPT Bisacodyl (Dulcolax) 10 mg AL DAILYPRN PRN PRN Reason: Constipation Calcium Carbonate (Tums) 1,000 mg PO Q4H PRN PRN Reason: Heartburn or Indigestion Colchicine (Colcrys) 0.6 mg PO BID [facility] Last Admin: 11/11/17 20:22 Dose: 0.6 mg Diphenhydramine HCl (Benadryl) 25 mg PO Q6H PRN PRN Reason: Itching Docusate Sodium (Colace) 100 mg PO BID [facility] Last Admin: 11/11/17 20:24 Dose: Not Given Famotidine (Pepcid) 20 mg PO BID [facility] Last Admin: 11/11/17 20:23 Dose: 20 mg Hydrochlorothiazide (Hydrochlorothiazide) 12.5 mg PO DAILY [facility] Last Admin: 11/11/17 10:04 Dose: 12.5 mg Levothyroxine Sodium (Synthroid) 112 mcg PO 0600 [facility] Last Admin: 11/11/17 05:59 Dose: 112 mcg Losartan Potassium (Cozaar) 50 mg PO DAILY [facility] Last Admin: 11/11/17 10:04 Dose: 50 mg Metoprolol Tartrate (Lopressor) 25 mg PO BID [facility] Naproxen (Naprosyn) 250 mg PO BID [facility] Last Admin: 11/11/17 20:23 Dose: 250 mg Nitroglycerin (Nitrostat) 0.4 mg SL Q5MIN PRN PRN Reason: Chest Pain Ondansetron HCl (Zofran) 4 mg IVP Q6H PRN PRN Reason: Nausea/Vomiting Silver Sulfadiazine (Silvadene) 0 gm TOP Q12H PRN PRN Reason: Rash/Topical Irritation Temazepam (Restoril) 15 mg PO HSPRN PRN PRN Reason: Insomnia Tramadol HCl (Ultram) 50 mg PO Q4H PRN PRN Reason: FOR MODERATE PAIN 4-6
[2017-11-12 05:24] LABS: Platelet Count 140 thou/uL (130-400)
[2017-11-12 05:25] LABS: Hemoglobin 13.2 g/dL (14.0-18.0); Platelet Count 138 thou/uL (130-400)
[2017-11-12] MEDS: Levothyroxine Sodium 112 MCG TAB PO SCH (06:02)
--- NOTE | 2017-11-12 07:29 | ECHO ---
TRANSESOPHAGEAL ECHOCARDIOGRAM: Date: 11/11/16 REASON FOR PROCEDURE: Mr. Patel is a 82-year-old male with presentation with sustained atrial flutter , not on anticoagulation. CAMELIA performed prior to planned ablation procedure. PROCEDURE: The patient received propofol per anesthesia specialist. After adequate level of sedation achieved, a standard transesophageal echocardiogram probe was passed into the esophagus without difficulty. Patient tolerated procedure well. No complications noted. RESULTS: The left atrium is mildly enlarged. Left atrial appendage well visualized and contains no clots. Spontaneous echo contrast was seen throughout the left atrium and left atrial appendage, but no formed clot seen. Left atrial velocities are up to 20 cm/second to 40 cm/second. Four pulmonary veins were seen. Interatrial septum free of defect. Mitral valve with mild regurgitation. Aortic valve is sclerotic, not stenosed. Tricuspid valve with mild regurgitation. Pulmonic valve not visualized.Pericardial space is without effusion. LV systolic function appears to be normal with size normal. Mild right ventricular enlargement seen. Visualized portion of the ascending and descending aorta without aneurysm, dissection or atheroma. CONCLUSION: 1. No intracardiac clots. 2. Mild left atrial enlargement. 3. Mild mitral and tricuspid regurgitation. 4. Normal left ventricular systolic function. PLAN: Proceed with ablation procedure and resume anticoagulation after. MTDD
[2017-11-12] MEDS: Apixaban 5 MG TAB PO SCH ×2 (08:58→20:15)
[2017-11-12] MEDS: Hydrochlorothiazide 25 MG TAB PO SCH (08:58)
[2017-11-12] MEDS: Losartan 25 MG TAB PO SCH (08:58)
[2017-11-12] MEDS: Colchicine 0.6 MG TAB PO SCH (08:59)
[2017-11-12] MEDS: Famotidine 20 MG TAB PO SCH ×2 (08:59→20:16)
[2017-11-12] MEDS: Metoprolol Tartrate 25 MG TAB PO SCH ×2 (08:59→20:16)
[2017-11-12] MEDS: Naproxen 500 MG TAB PO SCH (09:00)
[2017-11-12] MEDS: Docusate 100 MG CAP PO SCH ×2 (09:00→20:16)
[2017-11-12 11:30] LABS: Anion Gap 12 mmol/L (10-20); BUN (Urea Nitrogen) 39 mg/dL (8.4-25.7); Calc. Creatinine Clearance 41 mL/min (70-130); Calcium 8.3 mg/dL (7.8-10.44); Carbon Dioxide 24 mmol/L (23-31); Chloride 109 mmol/L (98-107); Estimated GFR-MDRD 41; Glucose 117 mg/dL (83-110); Magnesium 2.1 mg/dL (1.6-2.6); Potassium 4.1 mmol/L (3.5-5.1); Sodium 141 mmol/L (136-145)
[2017-11-12] MEDS: Sodium Chloride 0.9% 250 ML IV SCH (14:46)
--- NOTE | 2017-11-12 14:51 | PDOC.CTH ---
Cardiology Progress Note - Subjective Electrophysiology Progress Note: Patient seen and did well overnight since EPS and ablation yesterday. He has been up walking and does report slightly increased SOB with activity. Denies pain or tenderness at groin access sites, chest pain/pressure, palpitations, dizziness, or heart racing. - Objective Vital Signs Temp Pulse Resp BP BP Pulse Ox 11/12/17 12:00 98.7 F 70 20 124/93 H 98 11/12/17 08:00 97.5 F L 75 17 96 11/12/17 07:40 97.5 F L 75 17 140/70 96 11/12/17 04:00 97.8 F 73 20 116/75 96 Weight 184 lb 1.376 oz 11/11/17 11/12/17 11/13/17 06:59 06:59 06:59 Intake Total 1215 960 Output Total 400 Balance 815 960 - Physical Examination General/Neuro: alert & oriented x3, NAD Neck: no JVD present Lungs: CTA, unlabored respirations Heart: RRR Abdomen: soft Extremities: other: (without edema B/L) - Telemetry Telemetry Rhythm: NSR - Labs Result Diagrams: 11/12/17 04:57 11/12/17 10:44 Troponin/CKMB - Assessment/Plan 1. Typical Atrial Flutter s/p successful CTI ablation on 11/11/[address] Dejesus. Currently in NSR 2. Dyspnea- chronic problem slightly worsened during this hospitalization. 3. Acute Kidney Injury- Creat. trending up. Hospitalist managing. Gentle IV hydration starting today. 4. Elevated Chads-Vasc of 4 (age, HTN, CAD) requiring continued oral anticoagulation. Continue Eliquis upon discharge. Currently on full dose however with new TRINA, he does qualify for reduced dose therapy (age >80 and Creat >1.5) Will continue to follow while Routine follow up in clinic 4-6 weeks.
--- NOTE | 2017-11-12 15:19 | PDOC.CTH ---
<Hazel Delgado - Last Filed: 11/12/17 15:43> Cardiology Progress Note - Subjective The pt seen and examined. No overnight events. No cardiac complaints. - Objective Vital Signs Temp Pulse Resp BP BP Pulse Ox 11/12/17 12:00 98.7 F 70 20 124/93 H 98 11/12/17 08:00 97.5 F L 75 17 96 11/12/17 07:40 97.5 F L 75 17 140/70 96 11/12/17 04:00 97.8 F 73 20 116/75 96 Weight 184 lb 1.376 oz 11/11/17 11/12/17 11/13/17 06:59 06:59 06:59 Intake Total 1215 960 Output Total 400 Balance 815 960 - Physical Examination General/Neuro: alert & oriented x3 Neck: no JVD present Lungs: other: (diminished at bases) Heart: RRR Abdomen: soft Extremities: other: (1+ pitting edema in BLE) - Telemetry Telemetry Rhythm: SR - Labs Result Diagrams: 11/12/17 04:57 11/12/17 10:44 Troponin/CKMB CK-MB (CK-2) 1.7 ng/mL (0-6.6) 11/09/17 06:55 Troponin I 0.056 ng/mL (< 0.028) H 11/09/17 06:55 - Assessment/Plan 1. Atrial flutter with RVR with S/p Aflutter ablation on 11/11/17 - remains in NSR; cont. monitor; f/u with EP 2. Chronic SOB - stable; cont. monitor 3. CAD with Hx of CABG x3 in 2005 - stable with ASA and BBlocker; cont. monitor on tele 4. HTN - stable with current medication; cont. monitor 5. HLD - on Statin 6. Hypothyroidism - on thyroid medication; managed by PCP 7. Acut kidney insufficiency on CKD stage 3 - NS 250ml IV given today by PCP; check Cr in AM 8. Acute Gout flare - stable MAR reviewed * may be discharged tomorrow if his Cr is within normal range Review of Systems - Review of Systems Constitutional: reports: no symptoms reported EENTM: reports: no symptoms reported Respiratory: reports: no symptoms reported Cardiac (ROS): reports: no symptoms reported ABD/GI: reports: no symptoms reported : reports: no symptoms reported Musculoskeletal: reports: no symptoms reported <Eloy Thompson - Last Filed: 11/12/17 18:06> Cardiology Progress Note - Objective Vital Signs Temp Pulse Resp BP Pulse Ox 11/12/17 12:00 98.7 F 70 20 124/93 H 98 11/12/17 08:00 97.5 F L 75 17 96 11/12/17 07:40 97.5 F L 75 17 140/70 96 Weight 184 lb 1.376 oz 11/11/17 11/12/17 11/13/17 06:59 06:59 06:59 Intake Total 1215 960 Output Total 400 Balance 815 960 - Labs Result Diagrams: 11/12/17 04:57 11/12/17 10:44 Troponin/CKMB CK-MB (CK-2) 1.7 ng/mL (0-6.6) 11/09/17 06:55 Troponin I 0.056 ng/mL (< 0.028) H 11/09/17 06:55 - Assessment/Plan Pt. seen and eval. by me. No further tachyarhythmias. Still SOB. I agree with the A/P by the PROGRAMMER OR ANALYST. Exam: bibasilar dry rales. RRR. Probably home tomorrow. The continued SOB likely has some pulmonary component. The dry rales are concerning for possible fibrosis.
--- NOTE | 2017-11-12 15:20 | PDOC.CTH ---
Cardiology Progress Note - Objective Vital Signs Temp Pulse Resp BP BP Pulse Ox 11/12/17 12:00 98.7 F 70 20 124/93 H 98 11/12/17 08:00 97.5 F L 75 17 96 11/12/17 07:40 97.5 F L 75 17 140/70 96 11/12/17 04:00 97.8 F 73 20 116/75 96 Weight 184 lb 1.376 oz 11/11/17 11/12/17 11/13/17 06:59 06:59 06:59 Intake Total 1215 960 Output Total 400 Balance 815 960 - Labs Result Diagrams: 11/12/17 04:57 11/12/17 10:44 Troponin/CKMB CK-MB (CK-2) 1.7 ng/mL (0-6.6) 11/09/17 06:55 Troponin I 0.056 ng/mL (< 0.028) H 11/09/17 06:55 - Assessment/Plan 1. A flutter with RVR s/p Ablation 11/11 2. Resp distress - prob due to #1 3. CAD 4. HTN 5. HLD/Hypothyroidism/CKD 3/Acute Gout flare PLAN: Cardio/EP/Pulm following Cont current meds as below Check Cr in AM Cont to monitor DC planning
[2017-11-12] MEDS: Atorvastatin Calcium 10 MG TAB PO SCH (20:15)
--- NOTE | 2017-11-12 20:27 | PDOC.PN ---
- Subjective Encounter Start Date: 11/12/17 Encounter Start Time: 20:00 Patient seen and examined. No new complaints. No overnight events - Objective MAR Reviewed: Yes Vital Signs & Weight: Vital Signs (12 hours) Temp Pulse Resp BP Pulse Ox 11/12/17 12:00 98.7 F 70 20 124/93 H 98 Weight Weight 184 lb 1.376 oz I&O: 11/11/17 11/12/17 11/13/17 06:59 06:59 06:59 Intake Total 8103 161 1797 Output Total 400 400 Balance 659 038 8394 Result Diagrams: 11/13/17 07:29 11/13/17 07:29 EKG Reviewed by me: Yes (Tele SR) Phys Exam - Physical Examination Constitutional: NAD Respiratory: no wheezing, no rhonchi Cardiovascular: RRR, no rub Gastrointestinal: soft, non-tender, positive bowel sounds Musculoskeletal: no edema Neurological: moves all 4 limbs Dx/Plan - Plan IMPRESSION: 1. TRINA - ?MAIKEL vs NSAID induced 2. A flutter with RVR s/p Ablation 11/11 - started on Eliquis 3. Resp distress - prob due to #1 4. CAD/Chronic diastolic heart failure 5. HTN 6. HLD/Hypothyroidism/CKD 3/Acute Gout flare - improved PLAN: * DC NSAIDS/Colchicine/diuretics * Renal USG * Urinalysis * Consult Nephrology * Patient refused IVF * Cardio/EP/Pulm following * Cont current meds as below * Cont to monitor * DC planning Review of Systems - Review of Systems Cardiovascular: negative: chest pain, palpitations, orthopnea, paroxysmal nocturnal dyspnea, edema, light headedness Gastrointestinal: negative: Nausea, Vomiting, Abdominal Pain, Diarrhea, Constipation, Melena, Hematochezia - Medications/Allergies Allergies/Adverse Reactions: Allergies Allergy/AdvReac Type Severity Reaction Status Date / Time No Known Allergies Allergy Verified 11/08/17 15:23 Medications: Current Medications Acetaminophen (Tylenol) 650 mg PO Q4H PRN PRN Reason: Mild Pain 1-3 Al Hydroxide/Mg Hydroxide (Maalox) 15 ml PO Q4H PRN PRN Reason: Heartburn or Indigestion Apixaban (Eliquis) 2.5 mg PO BID [facility] Last Admin: 11/12/17 20:15 Dose: 2.5 mg Aspirin (Aspirin Chewable) 81 mg PO DAILY [facility] Last Admin: 11/12/17 08:59 Dose: 81 mg Atorvastatin Calcium (Lipitor) 10 mg PO HS [facility] Last Admin: 11/12/17 20:15 Dose: 10 mg Bisacodyl (Dulcolax) 5 mg PO DAILYPRN PRN PRN Reason: CONSTIAPT Bisacodyl (Dulcolax) 10 mg [place] DAILYPRN PRN PRN Reason: Constipation Calcium Carbonate (Tums) 1,000 mg PO Q4H PRN PRN Reason: Heartburn or Indigestion Diphenhydramine HCl (Benadryl) 25 mg PO Q6H PRN PRN Reason: Itching Famotidine (Pepcid) 20 mg PO BID [facility] Last Admin: 11/12/17 20:16 Dose: 20 mg Levothyroxine Sodium (Synthroid) 112 mcg PO 0600 [facility] Last Admin: 11/12/17 06:02 Dose: 112 mcg Metoprolol Tartrate (Lopressor) 25 mg PO BID [facility] Last Admin: 11/12/17 20:16 Dose: 25 mg Nitroglycerin (Nitrostat) 0.4 mg SL Q5MIN PRN PRN Reason: Chest Pain Ondansetron HCl (Zofran) 4 mg IVP Q6H PRN PRN Reason: Nausea/Vomiting Silver Sulfadiazine (Silvadene) 0 gm TOP Q12H PRN PRN Reason: Rash/Topical Irritation Temazepam (Restoril) 15 mg PO HSPRN PRN PRN Reason: Insomnia Tramadol HCl (Ultram) 50 mg PO Q4H PRN PRN Reason: FOR MODERATE PAIN 4-6
--- NOTE | 2017-11-12 23:40 | EKG ---
Test Reason : POST ABLATION Blood Pressure : / mmHG Vent. Rate : 060 BPM Atrial Rate : 060 BPM P-R Int : 150 ms QRS Dur : 096 ms QT Int : 446 ms P-R-T Axes : 050 079 -01 degrees QTc Int : 446 ms Sinus rhythm with Premature supraventricular complexes Abnormal QRS-T angle, consider primary T wave abnormality Abnormal ECG When compared with ECG of 29-NOV-2016 16:32, Premature supraventricular complexes are now Present QT has lengthened Confirmed by Gary GOODMAN ([id number]) on 11/12/2017 11:40:05 PM Referred By: [facility] Confirmed By:Gary GOODMAN
--- NOTE | 2017-11-12 23:42 | EKG ---
Test Reason : Blood Pressure : / mmHG Vent. Rate : 078 BPM Atrial Rate : 078 BPM P-R Int : 148 ms QRS Dur : 098 ms QT Int : 408 ms P-R-T Axes : 099 074 -20 degrees QTc Int : 465 ms Normal sinus rhythm Abnormal QRS-T angle, consider primary T wave abnormality Abnormal ECG When compared with ECG of 11-NOV-2017 14:45, (Unconfirmed) Premature supraventricular complexes are no longer Present Confirmed by Gary GOODMAN ([id number]) on 11/12/2017 11:42:00 PM Referred By: [facility] Confirmed By:Gary GOODMAN
[2017-11-13 04:32] LABS: Bilirubin Negative (Negative); Blood, Urine Small (Negative); Clarity CLEAR (Clear); Glucose, Urine (Dipstick) Negative (Negative); Leukocyte Negative (Negative); Nitrite Negative (Negative); Protein, Urine (Dipstick) 30 mg/dL (Neg-Trace); Specific Gravity, Urine 1.022 (1.002-1.036); Urobilinogen 0.2 mg/dL (0.2-1.0)
[2017-11-13 04:34] LABS: Bacteria/HPF None Seen HPF (None Seen); Hyaline Casts/LPF 0-3 HYALINE CAST LPF (0-3 Hyaline); RBC/HPF 0-3 HPF (0-3); Squamous Epithelial None Seen HPF (0-3); WBC/HPF 0-3 HPF (0-3)
[2017-11-13] MEDS: Sodium Chloride 0.9% 250 ML IV SCH (07:14)
[2017-11-13] MEDS ORDERED: Sodium Chloride 0.9% 10 ML ONE ×2 (07:28→11:49)
[2017-11-13] MEDS: Levothyroxine Sodium 112 MCG TAB PO SCH (07:41)
[2017-11-13] MEDS: Apixaban 5 MG TAB PO SCH (07:42)
[2017-11-13] MEDS: Famotidine 20 MG TAB PO SCH (07:42)
[2017-11-13] MEDS: Metoprolol Tartrate 25 MG TAB PO SCH (07:43)
[2017-11-13 07:52] LABS: Hemoglobin 14.3 g/dL (14.0-18.0); Platelet Count 143 thou/uL (130-400)
[2017-11-13 08:10] LABS: Albumin 3.9 g/dL (3.4-4.8); BUN (Urea Nitrogen) 31 mg/dL (8.4-25.7); BUN/Creatinine Ratio 26.05; Calc. Creatinine Clearance 54 mL/min (70-130); Calcium 8.8 mg/dL (7.8-10.44); Estimated GFR-MDRD 58; Glucose 97 mg/dL (83-110); Magnesium 2.2 mg/dL (1.6-2.6); Phosphorus 2.3 mg/dL (2.3-4.7)
[2017-11-13 08:21] LABS: Anion Gap 13 mmol/L (10-20); Carbon Dioxide 24 mmol/L (23-31); Chloride 109 mmol/L (98-107); Potassium 4.3 mmol/L (3.5-5.1); Sodium 142 mmol/L (136-145)
--- NOTE | 2017-11-13 11:00 | ULT ---
EXAM: RENAL ULTRASOUND: HISTORY: Acute kidney insufficiency. COMPARISON: None. TECHNIQUE: Sagittal and transverse imaging of the kidneys performed. FINDINGS: Limited evaluation due to motion. Bilaterally, no hydronephrosis. Two separate anechoic foci in the mid to lower aspect of the right kidney compatible with cyst. The largest cyst measures 6.3 cm. Sm aller cyst measures 4 cm. No hydronephrosis. The right kidney measures 9.6 x 6.5 x 5.6 cm. Left Kidney: No hydronephrosis. There is renal cortical thinning. The left kidney measures 10.6 x 5.7 x 6.0 cm. There is a pericolic cyst measuring 3.7 cm. The urinary bladder is unremarkable. IMPRESSION: 1. Bilateral renal cysts. No hydronephrosis. 2. Bilateral renal cortical thinning. POS: CHAVO
--- NOTE | 2017-11-13 11:29 | PRG ---
DATE OF SERVICE: 11/13/2017 SUBJECTIVE: He seems to be doing well. OBJECTIVE DATA: VITAL SIGNS: Blood pressure is 179/84, heart rate 70, respirations 20, temperature 98.8 degrees Fahr enheit. GENERAL: Alert and oriented man in no apparent distress. NECK: Supple. Jugular veins not distended. CHEST: Coarse without crackles. CARDIOVASCULAR: Heart sounds are regular to rate and rhythm. No murmur or gallop. ABDOMEN: Benign. Bowel sounds positive. EXTREMITIES: Lower extremities without edema, clubbing or cyanosis. DATABASE: The telemetry strips reviewed and reveals no recurrence of atrial arrhythmias, occasional PACs only. LABORATORY DATA: Reveals BUN 31, creatinine 1.19 from yesterday, likely with hydration. ASSESSMENT AND PLAN: Mr. Patel is an 82-year-old man with prior history of sustained atrial flutter, status post cavotricuspid isthmus ablation eliminating atrial flutter, currently maintaining sinus r hythm. He had a spontaneous echo contrast on his CAMELIA, but preserved LV function. We are advocating continued anticoagulation, hence the worsening renal function, now is on 2.5 mg twice a day Eliquis. If his renal function continues to improve, he could likely go back to the 5 mg twice a day dose. B lood pressure is still suboptimally controlled as per Dr. Thompson. Plan to outpatient followup and furt her evaluation for recurrence of atrial fibrillation.
[2017-11-13] MEDS ORDERED: Furosemide 20 MG/2 ML VIAL SLOW IVP SCH (11:30)
--- NOTE | 2017-11-13 12:15 | PDOC.CTH ---
<Hazel Delgado - Last Filed: 11/13/17 12:15> Cardiology Progress Note - Subjective The pt seen and examined. No overnight events. No cardiac complaints. His family concerns his SOB today - Objective Vital Signs Temp Pulse Resp BP BP Pulse Ox 11/13/17 08:33 79 20 140/81 89 L 11/13/17 07:35 98.2 F 77 20 163/83 H 96 11/13/17 04:00 98.0 F 20 179/84 H 93 L Weight 182 lb 11/12/17 11/13/17 11/14/17 06:59 06:59 06:59 Intake Total 960 1645 Output Total 800 Balance 960 845 - Physical Examination General/Neuro: alert & oriented x3 Neck: no JVD present Lungs: other: (diminished at bases) Abdomen: soft Extremities: other: (No edema) - Telemetry Telemetry Rhythm: SR w/ PACs - Labs Result Diagrams: 11/13/17 07:29 11/13/17 07:29 Troponin/CKMB CK-MB (CK-2) 1.7 ng/mL (0-6.6) 11/09/17 06:55 Troponin I 0.056 ng/mL (< 0.028) H 11/09/17 06:55 - Assessment/Plan 1. Atrial flutter with RVR with S/p Aflutter ablation on 11/11/17 - remains in NSR with Metoprolol and Eliquis 2.5mg BID; cont. monitor; f/u with EP 2. Chronic SOB - due to possible fibrosis? managed by Cardiographer 3. CAD with Hx of CABG x3 in 2004 - stable with ASA and BBlocker; cont. monitor on tele 4. HTN - stable with current medication; cont. monitor 5. HLD - on Statin 6. Hypothyroidism - on thyroid medication; managed by PCP 7. Acut kidney insufficiency on CKD stage 3 - improving today; Eliquis was decreased from 5mg to 2.5mg BID; cont. monitor 8. Acute Gout flare - stable MAR reviewed Review of Systems - Review of Systems Constitutional: reports: no symptoms reported EENTM: reports: no symptoms reported Respiratory: reports: see HPI Cardiac (ROS): reports: no symptoms reported ABD/GI: reports: no symptoms reported : reports: no symptoms reported Musculoskeletal: reports: no symptoms reported Skin: reports: no symptoms reported Neurological: reports: no symptoms reported <Eloy Thompson - Last Filed: 11/14/17 23:09> Cardiology Progress Note - Objective Weight 182 lb 11/13/17 11/14/17 11/15/17 06:59 06:59 06:59 Intake Total 1645 500 Output Total 800 Balance 845 500 - Labs Result Diagrams: 11/13/17 07:29 11/13/17 07:29 Troponin/CKMB CK-MB (CK-2) 1.7 ng/mL (0-6.6) 11/09/17 06:55 Troponin I 0.056 ng/mL (< 0.028) H 11/09/17 06:55 - Assessment/Plan Pt. seen and eval. by me. I agree with the AP by the CHIEF ACCOUNTING OFFICER. He remains in NSR. The exam is unchanged. He is ambulating with the assistance. Ready for d/c.
[2017-11-13 13:57] VITALS: TEMP 99.2
--- NOTE | 2017-11-13 14:45 | PDOC.PN ---
- Subjective Encounter Start Date: 11/13/17 Encounter Start Time: 11:45 Patient seen and examined. No new complaints. No CP/SOB. No overnight events - Objective MAR Reviewed: Yes Vital Signs & Weight: Vital Signs (12 hours) Temp Pulse Resp BP BP Pulse Ox 11/13/17 12:00 99.2 F 75 20 128/70 95 11/13/17 08:33 79 20 140/81 89 L 11/13/17 07:35 98.2 F 77 20 163/83 H 96 11/13/17 04:00 98.0 F 20 179/84 H 93 L Weight Weight 182 lb I&O: 11/12/17 11/13/17 11/14/17 06:59 06:59 06:59 Intake Total 960 1645 Output Total 800 Balance 960 845 Result Diagrams: 11/13/17 07:29 11/13/17 07:29 Radiology Reviewed by me: No (Renal USG -cyst) EKG Reviewed by me: Yes (Tele SR) Phys Exam - Physical Examination Patient in mild resp distress Respiratory: no wheezing, no rhonchi dec AE at bases Cardiovascular: RRR, no rub Gastrointestinal: soft, non-tender, positive bowel sounds Musculoskeletal: no edema Neurological: moves all 4 limbs Dx/Plan - Plan IMPRESSION: 1. TRINA - prob NSAID induced - improving 2. A flutter with RVR s/p Ablation 11/11 - on Eliquis/Metoprolol 3. Resp distress - prob due to #1 4. CAD/Chronic diastolic heart failure 5. HTN 6. HLD/Hypothyroidism/CKD 3/Acute Gout flare - improved PLAN: * Nephrology recommended one dose 20 mg IV Lasix * Home O2 assessment * Cardio/EP/Pulm following * Cont current meds as below * Cont to monitor * DC planning * AM labs Review of Systems - Review of Systems Respiratory: SOB with Excertion. negative: Cough, Dry, Shortness of Breath, Hemoptysis, Pleuritic Pain, Sputum, Wheezing Cardiovascular: negative: chest pain, palpitations, orthopnea, paroxysmal nocturnal dyspnea, edema, light headedness - Medications/Allergies Allergies/Adverse Reactions: Allergies Allergy/AdvReac Type Severity Reaction Status Date / Time No Known Allergies Allergy Verified 11/08/17 15:23 Medications: Current Medications Acetaminophen (Tylenol) 650 mg PO Q4H PRN PRN Reason: Mild Pain 1-3 Al Hydroxide/Mg Hydroxide (Maalox) 15 ml PO Q4H PRN PRN Reason: Heartburn or Indigestion Apixaban (Eliquis) 2.5 mg PO BID [facility] Last Admin: 11/13/17 07:42 Dose: 2.5 mg Aspirin (Aspirin Chewable) 81 mg PO DAILY [facility] Last Admin: 11/13/17 07:42 Dose: 81 mg Atorvastatin Calcium (Lipitor) 10 mg PO HS [facility] Last Admin: 11/12/17 20:15 Dose: 10 mg Bisacodyl (Dulcolax) 5 mg PO DAILYPRN PRN PRN Reason: CONSTIAPT Bisacodyl (Dulcolax) 10 mg NC DAILYPRN PRN PRN Reason: Constipation Calcium Carbonate (Tums) 1,000 mg PO Q4H PRN PRN Reason: Heartburn or Indigestion Diphenhydramine HCl (Benadryl) 25 mg PO Q6H PRN PRN Reason: Itching Famotidine (Pepcid) 20 mg PO BID [facility] Last Admin: 11/13/17 07:42 Dose: 20 mg Levothyroxine Sodium (Synthroid) 112 mcg PO 0600 [facility] Last Admin: 11/13/17 07:41 Dose: 112 mcg Metoprolol Tartrate (Lopressor) 25 mg PO BID [facility] Last Admin: 11/13/17 07:43 Dose: 25 mg Nitroglycerin (Nitrostat) 0.4 mg SL Q5MIN PRN PRN Reason: Chest Pain Ondansetron HCl (Zofran) 4 mg IVP Q6H PRN PRN Reason: Nausea/Vomiting Silver Sulfadiazine (Silvadene) 0 gm TOP Q12H PRN PRN Reason: Rash/Topical Irritation Temazepam (Restoril) 15 mg PO HSPRN PRN PRN Reason: Insomnia Tramadol HCl (Ultram) 50 mg PO Q4H PRN PRN Reason: FOR MODERATE PAIN 4-6
--- NOTE | 2017-11-13 15:33 | CON ---
DATE OF CONSULTATION: 11/13/2017 CONSULTING PHYSICIAN: Dr. Jules. REASON FOR CONSULTATION: Acute kidney injury. REASON FOR ADMISSION: Shortness of breath. HISTORY OF PRESENT ILLNESS: This 82-year-old male with history of gout, hypothyroidism, diverticulos is, coronary artery disease, hyperlipidemia, and hypertension who came to the hospital with above com plaints and is being treated. The patient was found to have elevated creatinine of around 1.6 yester day and this morning was 1.1. The patient also had a contrast and initially thought to be contrast n ephropathy, but seems like creatinine is better, but he is having some shortness of breath and orthop maryjane. No fever or chills. No nausea or vomiting reported. PAST MEDICAL HISTORY: Gout, hypothyroidism, renal stones, diverticulosis, coronary artery disease, h yperlipidemia, and hypertension. PAST SURGICAL HISTORY: Colon resection, appendectomy, hernia repair, bilateral knee surgery, left sh oulder surgery, CABG, stress test. HOME MEDICATIONS: Aspirin, levothyroxine, allopurinol, hydrochlorothiazide, losartan, metoprolol, Pr otonix, vitamin D3, albuterol. ALLERGIES: No known drug allergies. SOCIAL HISTORY: No smoking, alcohol or drug use. FAMILY HISTORY: Negative for any kidney disease. REVIEW OF SYSTEMS: The following complete review of systems was negative, unless otherwise mentioned in the HPI or below: Constitutional: Weight loss or gain, ability to conduct usual activities. Skin: Rash, itching. Eyes: Double vision, pain. ENT/Mouth: Nose bleeding, neck stiffness, pain, tenderness. Cardiovascular: Palpitations, dyspnea on exertion, orthopnea. Respiratory: Shortness of breath, wheezing, cough, hemoptysis, fever or night sweats. Gastrointestinal: Poor appetite, abdominal pain, heartburn, nausea, vomiting, constipation, or diarrhea. Genitourinary: Urgency, frequency, dysuria, nocturia. Musculoskeletal: Pain, swelling. Neurologic/Psychiatric: Anxiety, depression. Allergy/Immunologic: Skin rash, bleeding tendency. PHYSICAL EXAMINATION: GENERAL: This is a well-built elderly male, in no apparent distress. VITAL SIGNS: Temperature 98.2, pulse 77, respiratory rate 20, blood pressure 140/81. HEENT: Atraumatic, normocephalic. Oral mucosa is moist. NECK: Supple. CVS: S1, S2 heard. Rate and rhythm regular. RESPIRATORY: Clear. ABDOMEN: Soft. MUSCULOSKELETAL: 1+ edema. DERMATOLOGIC: No skin rash. NEUROLOGICAL: Alert and awake. PSYCHIATRIC: Mood and affect normal. LABORATORY: Potassium 4.3, BUN 31, creatinine is 1.1. ASSESSMENT AND PLAN: 1. Acute kidney injury. Creatinine is getting better. 2. Hypertension, stable. 3. Respiratory failure, getting better, but still hypoxic. 4. Hypoxia. 5. Edema, controlled. 6. Renal function is stable. We will follow. Case discussed with Dr. Jules. Thank you for the consultation.
--- NOTE | 2017-11-13 15:57 | DIS ---
DATE OF DISCHARGE: 11/13/2017 DISCHARGE DISPOSITION: Home. FOLLOWUP: 1. Follow up with Dr. Tutu Hdz in 1 week. 2. Follow up with Nephrology, Dr. Rodríguez next week. 3. Follow up with Dr. Bishop and Dr. Thompson in 1-2 weeks. 4. Follow up with Electrophysiology Dr. Dejesus after 1 week. ALLERGIES: No known drug allergies. The patient was seen and examined on the day of discharge. Please see my progress note from today fo r details. DISCHARGE MEDICATIONS: 1. Eliquis 2.5 mg b.i.d. Please note that Electrophysiology recommended increasing the dose to 5 mg twice a day if renal function improves/stabilizes. 2. Aspirin 81 mg daily. 3. Vitamin D3 at 2000 units daily. 4. Hydrochlorothiazide 12.5 mg daily. 5. Synthroid 112 mcg daily. 6. Cozaar 50 mg b.i.d. 7. Lopressor 25 mg b.i.d. 8. Pravastatin 40 mg at bedtime. 4. Lasix as needed for edema. SIGNIFICANT LABORATORY DATA: 1. ESR 56. WBC of 10.4. 2. Troponin maximum was 0.080. CRP 9.39. BNP 170.4. 3. Maximum creatinine 1.6, at discharge 1.19. Stool for C. diff was negative. BRIEF HOSPITAL COURSE: The patient is an 82-year-old male with chronic diastolic heart failure, tito nary artery disease, hypertension, hyperlipidemia, and gout, who presented to the hospital with right arm pain. Please refer to the history and physical dated 11/08/2017 for further details. The patient was admitted to the hospital with a diagnosis of atrial flutter with rapid ventricular re sponse. The patient was evaluated by Cardiology as well as Electrophysiology. He was started on bet a-blockers and anticoagulation. Electrophysiology consult was placed. He underwent ablation/transes ophageal echocardiogram. He is currently in sinus rhythm. Patient has history of chronic respiratory distress and has been evaluated by Pulmonary as well as Ca rdiology. After atrial flutter, his respiratory distress somewhat improved. On admission, patient had right arm pain that was attributed to acute gout. He was started on colchi cine along with nonsteroidal anti-inflammatory drugs. His right arm swelling has completely resolved . He was advised to resume allopurinol. Patient had developed renal failure yesterday with a maximum creatinine of 1.6. The renal function i mproved to 1.19 after discontinuation of nonsteroidal anti-inflammatory drugs as well as losartan/hyd rochlorothiazide. He was evaluated by Nephrology, Dr. Rodríguez. He received 1 dose of IV Lasix today . He will benefit from repeat labs in 2-3 days. He was advised to follow up with Nephrology as outp atient. Patient has been cleared by consultants for discharge. He qualified for home oxygen. This will be a rranged by the case aide. FINAL DIAGNOSES: 1. Atrial flutter with rapid ventricular response, status post transesophageal echocardiogram and ab lation on 11/11/2017. He will continue Eliquis at low dose for now due to renal failure. I discusse d with Dr. Dejesus. The primary care physician is advised to follow up with Dr. Dejesus for possible incre ase in Eliquis dosing to 5 mg twice a day once his renal function stabilizes. 2. Chronic respiratory distress. 3. Acute kidney injury, probably nonsteroidal anti-inflammatory drug induce, improving. 4. Chronic kidney disease, stage 3. 5. Acute gout flare, resolved. 6. Hypothyroidism. 7. Hyperlipidemia. 8. Hypertension. 9. Coronary artery disease, status post coronary artery bypass graft. 10. Chronic diastolic heart failure, questionable acute on chronic. 11. Diverticulosis. 12. History of diaphragmatic weakness. 13. Elevated troponins, probably secondary to demand ischemia. Plan of care was discussed with the patient and the family in detail, they stated understanding. Total time coordinating the discharge of this patient was 35 minutes.
[2017-11-13 16:44] VITALS: BP 145/68
--- NOTE | 2017-11-13 17:37 | PRG ---
DATE OF SERVICE: 11/13/2017 SUBJECTIVE: Mr. Patel had no new complaints this morning. Room air sat was 89% . His wants him to have oxygen. I have explained at this point there is no clear benefit for him wearing oxygen and he does not want to wear oxygen.We have also explained it will not make him less dyspneic. OBJECTIVE: His lungs, heart, and abdomen are unchanged. IMPRESSION: Status post atrial flutter ablation, in sinus rhythm, on prophylactic dose of Eliquis. Hospitalist had prescribed oxygen. I have recommended that they not prescribe oxygen and just just have him see me in a couple of weeks. In this setting, there is no proven benefit of oxygen therapy with his gas exchange. Baseline O2 sat in the office I recall correctly is around 92%. Unfortunately, I think his is convinced that if he has oxygen, he will not be short of breath. I have tried to explain her during the office and here that this will change not his functional status. ROBEL
--- NOTE | 2017-11-30 15:31 | EKG ---
Test Reason : Blood Pressure : / mmHG Vent. Rate : 132 BPM Atrial Rate : 132 BPM P-R Int : 138 ms QRS Dur : 086 ms QT Int : 330 ms P-R-T Axes : 000 052 230 degrees QTc Int : 488 ms Atrial fibrillation Nonspecific ST and T wave abnormality Abnormal ECG Confirmed by POOJA BURTON, NATI ([id number]), writer editor CHRISTELLE COELLO ([id number]) on 11/30/2017 3:30:39 PM Referred By: POOJA Confirmed By:NATI PATTON MD
== END 2017-11-13 16:46 | disposition home or self-care (01) | DRG 273 ==
LOC: SCSER 10:03 → 2SW 13:36 → OBSVTOIN 11-09 12:18 → 2NO 11-09 15:56
PROVIDERS: ADMIT Internal Medicine Infectious Disease; ATTEND Internal Medicine Infectious Disease
PROC: 02583ZZ Destruction of Conduction Mechanism, Percutaneous Approach (ICD-10-PCS; principal; 2017-11-11)
PROC: 02K83ZZ Map Conduction Mechanism, Percutaneous Approach (ICD-10-PCS; 2017-11-11)
PROC: 4A023FZ Measurement of Cardiac Rhythm, Percutaneous Approach (ICD-10-PCS; 2017-11-11)
PROC: 4A0234Z Measurement of Cardiac Electrical Activity, Percutaneous Approach (ICD-10-PCS; 2017-11-11)
DX: I48.92 Unspecified atrial flutter (principal); I50.33 Acute on chronic diastolic (congestive) heart failure; J96.91 Respiratory failure, unspecified with hypoxia; N17.9 Acute kidney failure, unspecified; I13.0 Hypertensive heart and chronic kidney disease with heart failure and stage 1 through stage 4 chronic kidney disease, or unspecified chronic kidney disease; I24.8 Other forms of acute ischemic heart disease; N18.3 Chronic kidney disease, stage 3 (moderate); J98.6 Disorders of diaphragm; I48.91 Unspecified atrial fibrillation; E03.9 Hypothyroidism, unspecified; M10.021 Idiopathic gout, right elbow; K57.90 Diverticulosis of intestine, part unspecified, without perforation or abscess without bleeding; K21.9 Gastro-esophageal reflux disease without esophagitis; M10.031 Idiopathic gout, right wrist; I25.10 Atherosclerotic heart disease of native coronary artery without angina pectoris; E78.5 Hyperlipidemia, unspecified; Z87.19 Personal history of other diseases of the digestive system; Z85.038 Personal history of other malignant neoplasm of large intestine; Z87.442 Personal history of urinary calculi; Z90.49 Acquired absence of other specified parts of digestive tract; Z79.51 Long term (current) use of inhaled steroids; Z96.653 Presence of artificial knee joint, bilateral; Z79.82 Long term (current) use of aspirin; Z79.01 Long term (current) use of anticoagulants; T39.395A Adverse effect of other nonsteroidal anti-inflammatory drugs [NSAID], initial encounter
CPT/HCPCS: 36415; 71046; 71275; 76770; 76942; 80048; 80069; 81001; 82553; 82565; 83735; 83880; 84484; 84550; 85014; 85018; 85025; 85049; 85379; 85652; 86140; 87324; 87449; 93005; 93010; 93312; 93613; 93622; 93623; 93653; 99214; A4216; C1730; C1769; G0463; J1265; J1644; J1650; J1940; J2704; S0028

== ENCOUNTER 2017-11-22 09:01 | Outpatient (CLI) | payer MEDICARE, BC ==
--- NOTE | 2017-11-22 09:43 | RAD ---
PA AND LATERAL VIEWS CHEST: Date: 11/22/17 HISTORY: Orthopnea. FINDINGS/IMPRESSION: Comparison made with exam of 11/08/17. Changes of median sternotomy again seen. The heart size is normal. The aorta is tortuous. There is bi basilar atelectasis with probable small effusions. No lobar consolidation or pneumothoraces are seen. Degenerative changes in the right shoulder joint and prosthesis in the left humeral head are again s een. There are degenerative changes in the spine. POS: CARMEL
== END 2017-11-22 09:02 | disposition home or self-care (01) ==
LOC: RAD 09:01
PROVIDERS: ATTEND Family Medicine
DX: R06.01 Orthopnea (principal); Q25.46 Tortuous aortic arch; J98.11 Atelectasis; M19.011 Primary osteoarthritis, right shoulder; M47.819 Spondylosis without myelopathy or radiculopathy, site unspecified; Z98.890 Other specified postprocedural states; N99.0 Postprocedural (acute) (chronic) kidney failure
CPT/HCPCS: 36415; 71046; 80048

== ENCOUNTER 2017-12-05 05:52 | Day surgery (SDC) | payer MEDICARE, BC ==
[2017-12-04 08:44] VITALS: BMI 29.0
[2017-12-05] MEDS ORDERED: PROPOFOL 0 ML ONE (06:48)
[2017-12-05] MEDS ORDERED: PROPOFOL 20 ML ONE (06:58)
--- NOTE | 2017-12-05 09:19 | OP ---
DATE OF PROCEDURE: 12/05/2017 INDICATION FOR PROCEDURE: An 82-year-old patient who has undergone ablation of atrial flutter who pr esented again with atrial fibrillation. Has been on medical management, has been maintained on Eliqu is, also is on Multaq for the last 5-7 days. He was advised to undergo electrical cardioversion of h is atrial fibrillation back to normal sinus rhythm. He has been somewhat symptomatic with shortness of breath due to the atrial fibrillation. He was taken to the recovery area where he underwent short -acting propofol using one attempt at 250 joules. The patient was successfully converted back to nor mal sinus rhythm with a heart rate in the 70s. There were no difficulties or complications encounter ed.
--- NOTE | 2017-12-05 12:24 | DIS ---
DATE OF PROCEDURE: 12/05/2017 DIAGNOSES: 1. Atrial fibrillation was recurrent atrial fibrillation, also history of atrial flutter which has u ndergone ablation. 2. Coronary artery disease. 3. History of pulmonary fibrosis. 4. 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 5. Dyslipidemia. 6. Hypertension. 7. History of tobacco abuse in the past. DISCHARGE DIAGNOSES: 1. Atrial fibrillation was recurrent atrial fibrillation, also history of atrial flutter which has u ndergone ablation. 2. Coronary artery disease. 3. History of pulmonary fibrosis. 4. 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 5. Dyslipidemia. 6. Hypertension. 7. History of tobacco abuse in the past. PROCEDURES IN HOSPITAL: Included electrocardioversion of atrial fibrillation back to normal sinus rh ythm at one attempt at 250 joules. DISCHARGE MEDICATIONS: Multaq 400 mg b.i.d., losartan 50 mg half tablet b.i.d., Levothyroxine 112 mc g daily, Eliquis 2.5 mg b.i.d., hydrochlorothiazide 25 mg half a tablet daily, allopurinol 300 mg karen ly, pravastatin 40 mg q.p.m., furosemide 40 mg p.r.n. as needed for lower extremity edema or increasi ng shortness of breath. His followup will be with me in 1 month in the office. He will continue his routine followups with tina moise bronzer. He needs to call and make an appointment with the bronzer unless they have already provided him one. HOSPITAL COURSE: This is a very unfortunate elderly gentleman who is now 82 years old, has recently undergone an atrial flutter ablation. He continued to have atrial fibrillation. He has had a transe sophageal echocardiogram within the last couple months which showed no evidence of left atrial append age thrombus, no evidence of left atrial thrombus but did have smoke formation of the left atrium. H is ejection fraction has been relatively stable and well maintained somewhere in the 50-55% range wit h no evidence of other abnormalities. His ablation for atrial flutter was in 11/11/2017. He was brought in due to the continued atrial fib rillation after the flutter ablation. He was advised to undergo an electrocardioversion of atrial fi brillation after he had been treated with Multaq. He has been on Eliquis for anticoagulation. He flower s been doing well otherwise and was brought in today and underwent the procedure using one attempt at 250 joules. He was successfully converted back to normal sinus rhythm. He was given short acting p ropofol for the procedure. No difficulties or complications were encountered. If he remains stable blood pressure and heart rate he will be discharged to home in the next 1-2 hours.
[2017-12-05] MEDS ORDERED: PROPOFOL 200 MG/20 ML VIAL ONE (15:18)
== END 2017-12-05 08:32 | disposition home or self-care (01) ==
LOC: CCL 05:52
PROVIDERS: ATTEND Internal Medicine Cardiovascular Disease
DX: I48.91 Unspecified atrial fibrillation (principal); I25.110 Atherosclerotic heart disease of native coronary artery with unstable angina pectoris; I48.92 Unspecified atrial flutter; J84.10 Pulmonary fibrosis, unspecified; E78.5 Hyperlipidemia, unspecified; I10 Essential (primary) hypertension; E03.9 Hypothyroidism, unspecified; M10.9 Gout, unspecified; M19.90 Unspecified osteoarthritis, unspecified site; Z87.891 Personal history of nicotine dependence; Z87.442 Personal history of urinary calculi; Z79.01 Long term (current) use of anticoagulants; Z79.899 Other long term (current) drug therapy; Z96.653 Presence of artificial knee joint, bilateral; Z95.5 Presence of coronary angioplasty implant and graft; Z96.612 Presence of left artificial shoulder joint; Z90.49 Acquired absence of other specified parts of digestive tract; Z98.890 Other specified postprocedural states
CPT/HCPCS: 92960; J2704

== ENCOUNTER 2018-08-22 10:36 | Outpatient (CLI) | payer MEDICARE, BC ==
[2018-08-22 11:50] LABS: Hemoglobin 13.7 g/dL (14.0-18.0)
[2018-08-22 12:03] LABS: INR-International Normal Ratio 1.2; Prothrombin Time 15.4 SEC (12.0-14.7)
[2018-08-22 12:09] LABS: ALT (SGPT) 9 U/L (8-55); AST (SGOT) 8 U/L (5-34); Alkaline Phosphatase 58 U/L (40-150); Anion Gap 12 mmol/L (10-20); BUN (Urea Nitrogen) 16 mg/dL (8.4-25.7); Bilirubin, Total 0.6 mg/dL (0.2-1.2); Calc. Creatinine Clearance 0 mL/min (70-130); Calcium 9.5 mg/dL (7.8-10.44); Carbon Dioxide 27 mmol/L (23-31); Chloride 106 mmol/L (98-107); Estimated GFR-MDRD 62; Glucose 98 mg/dL (83-110); Potassium 4.2 mmol/L (3.5-5.1); Sodium 141 mmol/L (136-145)
--- NOTE | 2018-08-25 11:50 | EKG ---
Test Reason : Blood Pressure : / mmHG Vent. Rate : 070 BPM Atrial Rate : 070 BPM P-R Int : 152 ms QRS Dur : 094 ms QT Int : 418 ms P-R-T Axes : 048 075 006 degrees QTc Int : 451 ms Sinus rhythm with Premature ventricular complexes Cannot rule out Anterior infarct , age undetermined T wave abnormality, consider inferior ischemia Abnormal ECG Confirmed by GANESH HOOVER ([id number]) on 08/25/2018 11:50:06 AM Referred By: MAXINE Confirmed By:GANESH HOOVER
== END 2018-08-22 10:37 | disposition home or self-care (01) ==
LOC: LABBT 10:36
PROVIDERS: ATTEND Internal Medicine Cardiovascular Disease
DX: Z01.818 Encounter for other preprocedural examination (principal); R94.39 Abnormal result of other cardiovascular function study
CPT/HCPCS: 80053; 85014; 85018; 85610; 93005; 93010

== ENCOUNTER 2018-08-26 05:46 | Day surgery (SDC) | payer MEDICARE, BC ==
[2018-08-26] MEDS ORDERED: Lidocaine 1% (PF) 30 ML VIAL ONE (06:42)
[2018-08-26] MEDS ORDERED: Iopamidol 370 76% 100 ML VIAL ONE (10:42)
--- NOTE | 2018-08-26 12:03 | DIS ---
DATE OF ADMISSION: 08/26/2018 DATE OF DISCHARGE: 08/26/2018 INDICATION FOR THE PROCEDURE: An 83-year-old patient was seen in the outpatient facility setting to undergo a cardiac catheterization after he was found to have an abnormal stress test. He also has a history of coronary disease and had bypass surgery in 2004. His other diagnoses include dyslipidemia , anymore. He also has a history of nephrolithiasis, history of bronchitis. He is status post bypass surgery with a FLANNERY to the LAD and a saphenous vein graft to the diagonal branch and a saphen ous vein graft to the OM2. He had ablation of the flutter and had a cardioversion of his atrial fibr illation in November of this year. DISCHARGE DIAGNOSES: . PROCEDURES IN THE HOSPITAL: Cardiac catheterization, left ventriculogram, coronary arteriography, gr aft evaluation and FLANNERY graft evaluation also. DISCHARGE MEDICATIONS: Same as his admission medications. These include pravastatin 40 mg a day, lo sartan I believe he takes 25 mg a day, levothyroxine 112 mcg daily, hydrochlorothiazide 12.5 mg a day , Multaq 400 mg b.i.d., Eliquis 2.5 mg b.i.d., and allopurinol 300 mg p.o. daily. I will see him peyton k in the office in 1 month. He will continue his routine followups with his primary care physician, Dr. Tutu Hdz. HOSPITAL COURSE: This very pleasant gentleman, 83 years old, underwent bypass surgery in 2004 and co ntinued to have dyspnea on exertion. On my examination, he did have some bibasilar rales. This may be beginning of pulmonary fibrosis, but he does not appear to be in any overt congestive heart failur e otherwise. He had a stress test which was abnormal. He was advised to undergo repeat cardiac cath eterization. He was taken to cardiac catheterization laboratory, where he was prepped and draped in sterile fashion and using a right femoral artery approach, the procedure was performed. The coronary arteries show a 99% stenosis of the left anterior descending with diffuse plaque formation. The fir st diagonal branch is 100% occluded. The left circumflex is a large vessel, which appears to be diamante nant and has a first obtuse marginal branch which bifurcates and part of this has a large aneurysmal section but it is 100% occluded, but after this the other segment this OM branch is also subtotal and only a shadow was seen. There is a bypass graft attached to the obtuse marginal branch which remain s patent. There is also saphenous vein graft to the diagonal branch which remains patent. There is no distal stenosis noted in that obtuse marginal branch nor in the diagonal branch. The FLANNERY was delio stomosed to the LAD and this remains patent without evidence of stenosis and the distal left anterior descending artery also has no stenosis. His right coronary artery is a very small nondominant vesse l which supplies only the right ventricle and this does not have any significant stenosis. His left ventriculogram showed ejection fraction to be more than 60%-65%. The LVEDP was approximately 70 mmHg . He has by diagnosis in the past by echocardiogram has mild diastolic dysfunction. I would not joesph pect this is significant enough to be causing his symptoms and most likely he has some underlying pul monary problems, and this will need to be addressed by the air quality consultant. Otherwise, he tolerated th e procedure well. There were no difficulties or complications. If he remains stable, he will be dis charged home and I will see him back as noted.
== END 2018-08-26 13:30 | disposition home or self-care (01) ==
LOC: CCL 05:46
PROVIDERS: ATTEND Internal Medicine Cardiovascular Disease
PROC: B2111ZZ Fluoroscopy of Multiple Coronary Arteries using Low Osmolar Contrast (ICD-10-PCS; principal; 2018-08-26)
PROC: B2181ZZ Fluoroscopy of Left Internal Mammary Bypass Graft using Low Osmolar Contrast (ICD-10-PCS; 2018-08-26)
PROC: B2131ZZ Fluoroscopy of Multiple Coronary Artery Bypass Grafts using Low Osmolar Contrast (ICD-10-PCS; 2018-08-26)
PROC: 4A023N7 Measurement of Cardiac Sampling and Pressure, Left Heart, Percutaneous Approach (ICD-10-PCS; 2018-08-26)
DX: I25.10 Atherosclerotic heart disease of native coronary artery without angina pectoris (principal); I25.82 Chronic total occlusion of coronary artery; I10 Essential (primary) hypertension; Z79.899 Other long term (current) drug therapy; Z95.1 Presence of aortocoronary bypass graft
CPT/HCPCS: 93459; C1769; J1644; J2001

== ENCOUNTER 2019-07-06 05:57 | Day surgery (SDC) | payer MEDICARE, BC ==
[2019-07-03 08:38] VITALS: BMI 29.0
[2019-07-06 07:14] LABS: #Basophils 0.1 thou/uL (0.0-0.2); #Eosinphils 0.3 thou/uL (0.0-0.7); #Lymphocytes 0.9 thou/uL (1.20-3.40); #Monocytes 0.6 thou/uL (0.11-0.59); #Neutrophils 4.7 thou/uL (1.40-6.50); %Basophils 1.2 % (0.0-1.0); %Eosinophils 4.7 % (0.0-10.0); %Lymphocytes 13.1 % (21.0-51.0); %Neutrophils 71.9 % (42.0-75.0); Hemoglobin 14.1 g/dL (14.0-18.0); Mean Corpuscular HGB CONC 32.7 g/dL (32.0-36.0); Mean Corpuscular Hemoglobin 31.4 pg (27.0-31.0); Mean Platelet Volume 9.7 fL (7.4-10.4); Platelet Count 134 thou/uL (130-400); RBC Distribution Width 14.2 % (11.5-14.5); Red Blood Cell (RBC) Count 4.48 mill/uL (4.70-6.10); White Blood Cell (WBC) Count 6.5 thou/uL (4.8-10.8)
[2019-07-06 07:20] LABS: Prothrombin Time 22.2 SEC (12.0-14.7)
[2019-07-06 07:21] LABS: PTT 42.5 SEC (22.9-36.1)
[2019-07-06 07:24] LABS: ALT (SGPT) 13 U/L (8-55); AST (SGOT) 14 U/L (5-34); Albumin 4.2 g/dL (3.4-4.8); Alkaline Phosphatase 63 U/L (40-150); Anion Gap 10 mmol/L (10-20); BUN (Urea Nitrogen) 39 mg/dL (8.4-25.7); Bilirubin, Total 0.7 mg/dL (0.2-1.2); Calc. Creatinine Clearance 37 mL/min (70-130); Calcium 9.5 mg/dL (7.8-10.44); Carbon Dioxide 27 mmol/L (23-31); Chloride 106 mmol/L (98-107); Estimated GFR-MDRD 38; Globulin 2.9 g/dL (2.4-3.5); Glucose 101 mg/dL (83-110); Potassium 4.3 mmol/L (3.5-5.1); Protein, Total 7.1 g/dL (5.8-8.1); Sodium 139 mmol/L (136-145)
[2019-07-06] MEDS ORDERED: PROPOFOL 20 ML ONE (08:00)
--- NOTE | 2019-07-06 15:04 | OP ---
DATE OF PROCEDURE: 07/06/2019 PROCEDURE PERFORMED: Electrical external cardioversion. REASON FOR PROCEDURE: Mr. Patel is an 84-year-old man with recurrent atrial arrhythmias, previously well controlled with prior ablation of a cavotricuspid isthmus dependent flutter in 2019 and subsequent atrial fibrillation was suppressed with Multaq. Now, he has presented back in atrial fibrillation and here for a planned cardioversion. At this point, his rate control is adequate. He is feeling well, but hence they consider Multaq therapy, would like to restore sinus rhythm. He has been on Eliquis 5 mg twice a day. DESCRIPTION OF PROCEDURE: The patient received propofol by Anesthesia specialist. After adequate level of sedation achieved, a synchronized 100-joule shock promptly converted back to sinus rhythm. CONCLUSION: Successful cardioversion. PLAN: Continue Multaq and Eliquis. Monitor for further arrhythmias. Job ID: [id number]
[2019-07-06] MEDS ORDERED: PROPOFOL 200 MG/20 ML VIAL ONE (17:13)
== END 2019-07-06 11:30 | disposition home or self-care (01) ==
LOC: CCL 05:57
PROVIDERS: ATTEND Internal Medicine Cardiovascular Disease
PROC: 5A2204Z Restoration of Cardiac Rhythm, Single (ICD-10-PCS; principal; 2019-07-06)
DX: I48.0 Paroxysmal atrial fibrillation (principal); I48.3 Typical atrial flutter; E03.9 Hypothyroidism, unspecified; I25.10 Atherosclerotic heart disease of native coronary artery without angina pectoris; E78.5 Hyperlipidemia, unspecified; I10 Essential (primary) hypertension; J84.10 Pulmonary fibrosis, unspecified; Z79.01 Long term (current) use of anticoagulants; Z79.899 Other long term (current) drug therapy
CPT/HCPCS: 80053; 85025; 85610; 85730; 92960; J2704

== ENCOUNTER 2019-07-06 16:24 | Emergency (ER) | payer MEDICARE, BC ==
[2019-07-06 16:50] LABS: #Basophils 0.1 thou/uL (0.0-0.2); #Eosinphils 0.4 thou/uL (0.0-0.7); #Lymphocytes 1.2 thou/uL (1.20-3.40); #Monocytes 0.7 thou/uL (0.11-0.59); #Neutrophils 5.1 thou/uL (1.40-6.50); %Basophils 1.1 % (0.0-1.0); %Eosinophils 5.5 % (0.0-10.0); %Lymphocytes 15.6 % (21.0-51.0); %Monocytes 9.7 % (0.0-10.0); %Neutrophils 68.2 % (42.0-75.0); Hemoglobin 13.7 g/dL (14.0-18.0); Mean Corpuscular HGB CONC 31.7 g/dL (32.0-36.0); Mean Corpuscular Hemoglobin 31.1 pg (27.0-31.0); Mean Corpuscular Volume 98.2 fL (78.0-98.0); Mean Platelet Volume 9.1 fL (7.4-10.4); Platelet Count 134 thou/uL (130-400); Red Blood Cell (RBC) Count 4.39 mill/uL (4.70-6.10); White Blood Cell (WBC) Count 7.4 thou/uL (4.8-10.8)
--- NOTE | 2019-07-06 16:56 | RAD ---
EXAM: Single view of the chest HISTORY: Chest pain after cardioversion COMPARISON: 02/21/2005 FINDINGS: Single view of the chest shows an enlarged but stable cardiomediastinal silhouette. The pa tient is status post sternotomy. There is no evidence of consolidation, mass, or pleural effusion. Patient has a left shoulder prosthesis. IMPRESSION: No evidence of acute cardiopulmonary disease
[2019-07-06 17:12] LABS: ALT (SGPT) 14 U/L (8-55); AST (SGOT) 17 U/L (5-34); Albumin 4.2 g/dL (3.4-4.8); Alkaline Phosphatase 65 U/L (40-150); Anion Gap 10 mmol/L (10-20); BUN (Urea Nitrogen) 36 mg/dL (8.4-25.7); Bilirubin, Total 0.6 mg/dL (0.2-1.2); CK (CPK) 69 U/L (30-200); Calc. Creatinine Clearance 0 mL/min (70-130); Calcium 9.1 mg/dL (7.8-10.44); Carbon Dioxide 30 mmol/L (23-31); Chloride 108 mmol/L (98-107); Estimated GFR-MDRD 40; Globulin 2.5 g/dL (2.4-3.5); Glucose 87 mg/dL (83-110); Potassium 4.6 mmol/L (3.5-5.1); Protein, Total 6.7 g/dL (5.8-8.1); Sodium 143 mmol/L (136-145)
[2019-07-06 19:03] LABS: Troponin I 0.024 ng/mL (< 0.028)
--- NOTE | 2019-07-11 14:12 | EKG ---
Test Reason : Blood Pressure : / mmHG Vent. Rate : 076 BPM Atrial Rate : 150 BPM P-R Int : 000 ms QRS Dur : 106 ms QT Int : 416 ms P-R-T Axes : 000 046 039 degrees QTc Int : 468 ms Atrial fibrillation Low voltage QRS Incomplete left bundle branch block Abnormal ECG Confirmed by CJ LOPEZ ([id number]), clinical editor NANI ROONEY ([id number]) on 07/11/2019 2:12:39 PM Referred By: Confirmed By:CJ LOPEZ
== END 2019-07-06 19:28 | disposition home or self-care (01) ==
LOC: ERS 16:24
DX: R07.9 Chest pain, unspecified (principal); I25.10 Atherosclerotic heart disease of native coronary artery without angina pectoris; I10 Essential (primary) hypertension; E78.5 Hyperlipidemia, unspecified; E03.9 Hypothyroidism, unspecified; M10.9 Gout, unspecified; E78.00 Pure hypercholesterolemia, unspecified; I48.91 Unspecified atrial fibrillation; Z79.01 Long term (current) use of anticoagulants; Z79.899 Other long term (current) drug therapy
CPT/HCPCS: 36415; 71045; 82550; 83880; 84484; 93005

== ENCOUNTER 2019-12-15 09:47 | Outpatient (CLI) | payer MEDICARE, BC ==
--- NOTE | 2019-12-15 10:16 | RAD ---
EXAM: Chest 2 views: HISTORY: Dyspnea COMPARISON: 08/05/2017 FINDINGS: There is an enlarged but stable cardiomediastinal silhouette. The patient is status post sternotomy. Increased interstitial markings are seen. Linear opacity in the left lung base may represent atelectasis or scarring. The patient is status post left shoulder arthroplasty. Degenerative changes are seen in the spine and right shoulder. IMPRESSION: Stable exam
== END 2019-12-15 09:48 | disposition home or self-care (01) ==
LOC: RAD 09:47
PROVIDERS: ATTEND Internal Medicine Critical Care Medicine
DX: R06.00 Dyspnea, unspecified (principal)
CPT/HCPCS: 71046